=== PATIENT | male | born 1960 | race Caucasian/White ===

== ENCOUNTER 2017-03-06 11:33 | Inpatient (IN) | payer SELFPAY ==
[2017-03-06] MEDS ORDERED: SODIUM CHLORIDE 0.9% 1000 ML INFUS.BAG IV ONE (12:23)
[2017-03-06] MEDS ORDERED: VANCOMYCIN 1,000 MG in DEXTROSE 5%-WATER - 250 ML IVPB ONE (12:24)
[2017-03-06] MEDS ORDERED: PIPERACILLIN/TAZOB 3.375 GM/50 ML PRE-DOCKED IV ONE ×2 (12:24→15:15)
[2017-03-06] MEDS ORDERED: ACETAMINOPHEN INJECTION 100 ML IVPB ONE (12:38)
--- NOTE | 2017-03-06 12:40 | PDOC ---
History of Present Illness - General Chief Complaint: Wound Infection Stated Complaint: WOUND INFECTION Time Seen by Provider: 03/06/17 12:10 History Source: Patient Exam Limitations: No Limitations - History of Present Illness Initial Comments: 03/06/17 12:34 The patient is a 56M with a PMH of DM and MRSA infection in his nose who presents to the ED after sustaining a bug bite. The patient states that last week he think a bug bit him in his L upper, inner arm. The patient states that the area welted up and then began to drain clear fluid. He covered the area with gauze but states that he changes the gauze multiple times a day. Today, he thought it was so bad he had to come to the emergency department. Patient denies fever, chills, nausea, vomiting. Past History - Past Medical History Allergies/Adverse Reactions: Allergies Allergy/AdvReac Type Severity Reaction Status Date / Time No Known Allergies Allergy Verified 03/06/17 11:45 Home Medications: Ambulatory Orders Glipizide [Glipizide ER] 10 mg PO DAILY 03/06/17 Metformin HCl 500 mg PO BID 03/06/17 Diabetes: Yes - Suicide/Smoking/Psychosocial Hx Smoking History: Never smoked Have you smoked in the past 12 months: No Information on smoking cessation initiated: No Hx Alcohol Use: No Drug/Substance Use Hx: No Substance Use Type: None Review of Systems - Review of Systems Able to Perform ROS?: Yes Is the patient limited Moldovan proficient: No Constitutional: No: Chills, Fever HEENTM: No: Eye Pain, Nose Pain, Throat Pain Respiratory: No: Cough, Shortness of Breath Cardiac (ROS): No: Chest Pain, Palpitations ABD/GI: No: Nausea, Vomiting : No: Burning, Dysuria, Discharge Musculoskeletal: No: Back Pain, Muscle Weakness Integumentary: Yes: Erythema, Pruritus, Rash. No: Bruising, Lesions, Lumps Neurological: No: Headache, Numbness, Tingling, Weakness Endocrine: No: Excessive Sweating, Unexplained Weight Gain *Physical Exam - Vital Signs Last Vital Signs Temp Pulse Resp BP Pulse Ox 101.1 F H 130 H 18 116/75 100 03/06/17 11:40 03/06/17 11:40 03/06/17 11:40 03/06/17 11:40 03/06/17 11:40 - Physical Exam General Appearance: Yes: Nourished, Appropriately Dressed. No: Apparent Distress HEENT: positive: Normal Voice, Hearing Grossly Normal Respiratory/Chest: positive: Lungs Clear, Normal Breath Sounds. negative: Respiratory Distress Cardiovascular: positive: Regular Rhythm, Regular Rate, S1, S2. negative: Diastolic Murmur, Systolic Murmur Gastrointestinal/Abdominal: positive: Flat, Soft. negative: Tender Musculoskeletal: negative: CVA Tenderness, CVA Tenderness (R), CVA Tenderness (L ) Extremity: positive: Normal Inspection Integumentary: positive: Warm, Erythema (L axilla, with mild extension to mid- elbow), Rash, Swelling, Other (Abscess, fluctuance, induration in the middle of the area.) Neurologic: positive: Fully Oriented, Alert, Normal Mood/Affect, Normal Response , Motor Strength 5 ED Treatment Course - LABORATORY CBC & Chemistry Diagram: 03/06/17 12:40 03/06/17 12:40 Medical Decision Making - Medical Decision Making 03/06/17 12:42 The patient is a 56M with a PMH of DM and MRSA infection (2 years ago) who presents to the ED with cellulitis w/ an abscess. The patient's incoming vitals are significant for tachycardia (130) and fever (101.1) therefore I will initiate the sepsis protocol. I will perform a bedside ultrasound of the cellulitic area. I will also order vanc/zosyn for broad spectrum coverage. Will reassess when labs return. 03/06/17 13:58 WBC count 11 w/ neutrophilia. UA questionable for UTI. Will discuss results with attending and continue abx. 03/06/17 14:32 Bedside US shows no evidence of abscess, but shows cobblestoning of skin. 03/06/17 14:46 Paged hospitalist for admission. Pending call back from [employer]. 03/06/17 14:56 Patient signed out to [employer] hospitalist. *DC/Admit/Observation/Transfer Diagnosis at time of Disposition: Cellulitis Qualifiers: Site of cellulitis: extremity Site of cellulitis of extremity: axilla Laterality: left Qualified Code(s): L03.112 - Cellulitis of left axilla - Discharge Dispostion Condition at time of disposition: Stable Admit: Yes
[2017-03-06 12:57] LABS: VENOUS BLOOD GAS HCO3 25.6 meq/L (19-25); VENOUS PH 7.4 (7.32-7.42)
[2017-03-06] MEDS ORDERED: ACETAMINOPHEN 1000 MG/100 ML VIAL (NON FORMULARY) IVPB ONE (13:00)
[2017-03-06] MEDS ORDERED: PIPERACILLIN/TAZOB 3.375 GM 50 ML IVPB ONE (13:01)
[2017-03-06] MEDS ORDERED: VANCOMYCIN 1 GRAM (PRE-DOCKED) 250 ML IVPB ONE (13:01)
[2017-03-06 13:02] LABS: BASOPHIL 0.6 % (0-2.0); EOSINOPHIL 1.5 % (0-4.5); MCH 29.9 pg (25.7-33.7); MCHC 33.7 g/dl (32.0-35.9); MEAN CELL VOLUME 88.8 fl (80-96); MEAN PLT VOLUME 9.8 fl (7.5-11.1); NEUTROPHILS 84.6 % (42.8-82.8); PLATELET COUNT 196 K/MM3 (134-434); RDW 13.1 % (11.9-15.9)
[2017-03-06 13:07] LABS: URINE APPEARANCE SLCLOUDY; URINE BILIRUBIN NEGATIVE (NEGATIVE); URINE BLOOD 1+ (NEGATIVE); URINE COLOR YELLOW; URINE GLUCOSE (UA) 3+ (NEGATIVE); URINE KETONE NEGATIVE (NEGATIVE); URINE NITRITE NEGATIVE (NEGATIVE); URINE UROBILINOGEN NEGATIVE mg/dL (0.2-1.0)
[2017-03-06 13:08] LABS: URINE PROTEIN 1+ (NEGATIVE)
[2017-03-06 13:10] LABS: URINE BACTERIA FEW /hpf (NONE SEEN); URINE MUCUS RARE; URINE WBC 14 /hpf (3-5)
[2017-03-06 13:11] LABS: URINE RBC 1 /hpf (0-3)
[2017-03-06 13:25] LABS: INR 1.25 (0.82-1.09); PROTHROMBIN TIME (PATIENT) 14.1 SEC (9.98-11.88)
[2017-03-06 13:28] LABS: ACTIVATED PTT 26.2 SECONDS (26.9-34.4)
--- NOTE | 2017-03-06 13:32 | PDOC ---
Attending Attestation - Resident Resident Name: SawyerredKristofer - ED Attending Attestation I have performed the following: I have examined & evaluated the patient, The case was reviewed & discussed with the resident, I agree w/resident's findings & plan, Exceptions are as noted - HPI HPI: 03/06/17 13:28 56 year old M c/ hx of DM p/w Left upper extremity cellulitis. 1 week ago, was playing golf, and thought was bitten by bug. noted in the last several days, the erythema extended from left proximal armpit to left distal forearm. Noted drainage from under armpit. Reported fevers last several days. Took no antibiotics. Came into ED today. - Physicial Exam PE: 03/06/17 13:29 GENERAL: NAD, warm to touch, AAOx3 SKIN: LUE: 2+ radial pulse. Sensation intact throughout. Significant erythema and induration extending from the from the left armpit with mild oozing to the mid left forearm. - Medical Decision Making 03/06/17 13:32 Vital Signs Temp Pulse Resp BP Pulse Ox 101.1 F H 130 H 18 116/75 100 03/06/17 11:40 03/06/17 11:40 03/06/17 11:40 03/06/17 11:40 03/06/17 11:40 56 yo M presents with fever and extensively cellulitis. Bedside ultrasound shows no collection to drain. Adult sepsis protocol initiated. IV vanc and zosyn Admit to the hospital Heart Score/ECG Review #1 ECG reviewed & interpreted by me at: 14:10 03/06/17 15:54 NSR 104, no std/lamine, TWi III, QTC 423 msec
[2017-03-06 13:53] LABS: ALBUMIN 2.9 g/dl (3.4-5.0); ANION GAP 9 (8-16); BILIRUBIN,TOTAL 0.3 mg/dL (0.2-1.0); CALCIUM 8.8 mg/dL (8.5-10.1); CO2 26 mmol/L (21-32); CREATININE 1.1 mg/dL (0.7-1.3); GLUCOSE,RANDOM 255 mg/dL (74-106); SGOT/AST 18 U/L (15-37); SGPT/ALT 36 U/L (12-78); TOT PROT 6.6 g/dl (6.4-8.2)
[2017-03-06 13:55] LABS: ALK PHOS 104 U/L (45-117); CPK 199 IU/L (39-308); TROPONIN I < 0.02 ng/ml (0.00-0.05)
[2017-03-06 15:07] LABS: URINE LEUK ESTERASE Negative (NEGATIVE)
--- NOTE | 2017-03-06 15:39 | HP ---
CHIEF COMPLAINT: Chills, itching, swelling of left axilla PCP: Dr. Ardon HISTORY OF PRESENT ILLNESS: This is a 56 year old male with PMHx of DM who presented to the ED with left axillary swelling, erythema, drainage after a bug bite on 02/27. The patient reports he got a bug bite on 02/27 after playing golf. He states it was erythematous and he took Benadryl and put Benadryl cream on it for itching. He then states this past and Tuesday it became larger and he developed chills. He states he then noticed there was drainage from it and he decided to come into the ED. He denies any fevers stating he did not take his temperature at home. He denies ER course was notable for: (1) WBC 11 (2) Temp 101.1, pulse 30, BP 116/75, resp 18, O2 100% on RA (3) Vanco and Zosyn given Recent Travel: denies PAST MEDICAL HISTORY: DM PAST SURGICAL HISTORY: denies Social History: Smoking: denies Alcohol: "a few beers every other week" Drugs: denies Family History: denies Allergies No Known Allergies Allergy (Verified 03/06/17 11:45) HOME MEDICATIONS: Home Medications Medication Instructions Recorded Glipizide [Glipizide ER] 10 mg PO DAILY 03/06/17 Metformin HCl 500 mg PO BID 03/06/17 REVIEW OF SYSTEMS CONSTITUTIONAL: Chills since evening. Absent: fever, diaphoresis, generalized weakness, malaise, loss of appetite, weight change HEENT: Absent: rhinorrhea, nasal congestion, throat pain, throat swelling, difficulty swallowing, mouth swelling, ear pain, eye pain, visual changes CARDIOVASCULAR: Absent: chest pain, syncope, palpitations, irregular heart rate , lightheadedness, peripheral edema RESPIRATORY: Absent: cough, shortness of breath, dyspnea with exertion, orthopnea, wheezing, stridor, hemoptysis GASTROINTESTINAL:Absent: abdominal pain, abdominal distension, nausea, vomiting , diarrhea, constipation, melena, hematochezia GENITOURINARY: Absent: dysuria, frequency, urgency, hesitancy, hematuria, flank pain, genital pain MUSCULOSKELETAL: Absent: myalgia, arthralgia, joint swelling, back pain, neck pain SKIN: Left upper arm bug bite on Tuesday, with worsening erythema and swelling throughout the week and then drainage noted today. Absent: itching, pallor HEMATOLOGIC/IMMUNOLOGIC: Absent: easy bleeding, easy bruising, lymphadenopathy, frequent infections ENDOCRINE:Absent: unexplained weight gain, unexplained weight loss, heat intolerance, cold intolerance NEUROLOGIC: Absent: headache, focal weakness or paresthesias, dizziness, unsteady gait, seizure, mental status changes, bladder or bowel incontinence PSYCHIATRIC: Absent: anxiety, depression, suicidal or homicidal ideation, hallucinations. PHYSICAL EXAMINATION Vital Signs - 24 hr 03/06/17 15:25 Temperature 98.2 F Pulse Rate [ 109 H Apical] Respiratory 20 Rate Blood Pressure 155/99 [Right Arm] O2 Sat by Pulse 97 Oximetry (%) GENERAL: Awake, alert, and fully oriented, in no acute distress. HEAD: Normal with no signs of trauma. EYES: Pupils equal, round and reactive to light, extraocular movements intact, sclera anicteric, conjunctiva clear. No lid lag. EARS, NOSE, THROAT: Ears normal, nares patent, oropharynx clear without exudates. Moist mucous membranes. NECK: Normal range of motion, supple without lymphadenopathy, JVD, or masses. LUNGS: Breath sounds equal, clear to auscultation bilaterally. No wheezes, and no crackles. No accessory muscle use. HEART: Regular rate and rhythm, normal S1 and S2 without murmur, rub or gallop. ABDOMEN: Soft, nontender, not distended, normoactive bowel sounds, no guarding, no rebound, no masses. No hepatomegaly or splenomegaly. MUSCULOSKELETAL: Normal range of motion at all joints. No bony deformities or tenderness. No CVA tenderness. UPPER EXTREMITIES: Left upper extremity with erythema, induration, edema, drainage. 2+ pulses, warm, well-perfused. No cyanosis. No clubbing. LOWER EXTREMITIES: 2+ pulses, warm, well-perfused. No calf tenderness. No peripheral edema. NEUROLOGICAL: Cranial nerves II-XII intact. Normal speech. Normal gait. PSYCHIATRIC: Cooperative. Good eye contact. Appropriate mood and affect. SKIN: Warm, dry, normal turgor, normal capillary refill. CBCD WBC 11.0 K/mm3 (4.0-10.0) H 03/06/17 12:40 RBC 3.99 M/mm3 (4.00-5.60) L D 03/06/17 12:40 Hgb 12.0 GM/dL (11.7-16.9) D 03/06/17 12:40 Hct 35.4 % (35.4-49) D 03/06/17 12:40 MCV 88.8 fl (80-96) 03/06/17 12:40 MCHC 33.7 g/dl (32.0-35.9) 03/06/17 12:40 RDW 13.1 % (11.9-15.9) 03/06/17 12:40 Plt Count 196 K/MM3 (134-434) 03/06/17 12:40 MPV 9.8 fl (7.5-11.1) 03/06/17 12:40 CMP Sodium 137 mmol/L (136-145) 03/06/17 12:40 Potassium 4.5 mmol/L (3.5-5.1) 03/06/17 12:40 Chloride 102 mmol/L (98-107) 03/06/17 12:40 Carbon Dioxide 26 mmol/L (21-32) 03/06/17 12:40 Anion Gap 9 (8-16) 03/06/17 12:40 BUN 16 mg/dL (7-18) D 03/06/17 12:40 Creatinine 1.1 mg/dL (0.7-1.3) 03/06/17 12:40 Creat Clearance w eGFR > 60 (>60) 03/06/17 12:40 Random Glucose 255 mg/dL (74-106) H D 03/06/17 12:40 Calcium 8.8 mg/dL (8.5-10.1) 03/06/17 12:40 Total Bilirubin 0.3 mg/dL (0.2-1.0) 03/06/17 12:40 AST 18 U/L (15-37) D 03/06/17 12:40 ALT 36 U/L (12-78) D 03/06/17 12:40 Alkaline Phosphatase 104 U/L (45-117) D 03/06/17 12:40 Total Protein 6.6 g/dl (6.4-8.2) 03/06/17 12:40 Albumin 2.9 g/dl (3.4-5.0) L D 03/06/17 12:40 CARDIAC ENZYMES Creatine Kinase 199 IU/L (39-308) 03/06/17 12:40 Troponin I < 0.02 ng/ml (0.00-0.05) 03/06/17 12:40 Assessment: This is a 56 year old male with PMHx of DM who presented to the ED with left axillary swelling, erythema, drainage after a bug bite on 02/27. Plan: 1) ID: Sepsis 2/2 left upper extremity cellulitis - F/u cultures - Continue Vancomycin (Hx of MRSA) - Continue Zosyn - F/u soft tissue ultrasound to r/o abscess - F/u surgery consult - F/u ID consult, discussed with Dr. Pepe 2) Endocrine: NIDDM - BGM ACHS - ISS ACHS - Hold all oral hypoglycemic agents while inpatient 3) F/E/N: - Monitor electrolytes - Diabetic diet 4) Prophylaxis: - SCDs bilaterally - Hold all chemical DVT prophylaxis for possible I&D 5) Dispo: - Requires continued inpatient care CODE STATUS: FULL CODE Problem List - Problem (1) Cellulitis Code(s): L03.90 - CELLULITIS, UNSPECIFIED Qualifiers: Site of cellulitis: extremity Site of cellulitis of extremity: axilla Laterality: left Qualified Code(s): L03.112 - Cellulitis of left axilla ; L03.112 - Cellulitis of left axilla (2) Sepsis affecting skin Code(s): A41.9 - SEPSIS, UNSPECIFIED ORGANISM Visit type - Emergency Visit Emergency Visit: Yes ED Registration Date: 03/06/17 Care time: The patient presented to the Emergency Department on the above date and was hospitalized for further evaluation of their emergent condition. - New Patient This patient is new to me today: Yes Date on this admission: 03/06/17 - Critical Care Critical Care patient: No
[2017-03-06] MEDS: VANCOMYCIN 1,250 MG in DEXTROSE 5%-WATER - 250 ML IVPB SCH (16:47)
[2017-03-06] MEDS: INSULIN SLIDING SCALE (NOVOLOG) 1 VIAL SQ SCH ×2 (17:07→22:16)
--- NOTE | 2017-03-06 17:49 | PN ---
Progress Note (short form) - Note Progress Note: ID Consult dictated Cellulitis/ soft tissue abscess L UE Hx MRSA Diabetes mellitus Await c/s Surgical evaluation Empiric vancomycin/ zosyn
--- NOTE | 2017-03-06 18:06 | CONS ---
DATE OF CONSULTATION: 03/06/2017 The patient is a 56-year-old obese, diabetic male with a history of MRSA infection in the past evaluated for left upper extremity cellulitis and abscess. Patient states that, on or about February 27, 2017, while golfing, he believes he may have been bitten by a bug. He noticed over the past 72 hours worsening erythema, warmth, and swelling of the arm. He had taken some Benadryl for pruritus, but did not take any antibiotics. He began to notice drainage and had subjective fever. He presented to the emergency room, where he was found to have cellulitis of the left upper extremity with purulent wound drainage. He reports that several years ago he had an MRSA soft tissue infection of his nose. PAST MEDICAL HISTORY: Positive for diabetes mellitus and history of MRSA soft tissue infection. No known allergies. LABORATORY DATA: White count 11.0, hematocrit 35.4, platelet count 196. BUN 16, creatinine 1.1. Urinalysis with 14 white cells. PHYSICAL EXAMINATION: General: He is awake and alert. He is not acutely toxic-appearing. Morbidly obese. Vital Signs: Temperature 98.2, temperature maximum 101.1, blood pressure 155/99, pulse 109 and regular, respirations 20/min. HEENT: Sclerae anicteric. Heart Sounds: S1, S2. Lungs: Clear. Abdomen: Obese, soft, nontender. Extremities: Negative for edema. Skin: On examination of the left upper extremity, there is a large area of erythema, warmth, and swelling extending from the left triceps area to the biceps area. There is an area where benito pus is noted to be draining. It is tender to touch. No fluctuance, no lymphangitis. IMPRESSION: 1. Cellulitis/soft tissue abscess of the left upper extremity. 2. 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 3. Diabetes mellitus. Await culture results, surgical evaluation for possible incision and drainage, empiric antibiotic coverage with vancomycin and Zosyn, local wound care. Thank you for the kind referral. MILTON LOPEZ M.D. [id number]
[2017-03-06] MEDS: PIPERACILLIN/TAZOB 4.5 GM 100 ML IVPB SCH (19:05)
[2017-03-06] MEDS: ACETAMINOPHEN 1000 MG/100 ML VIAL (NON FORMULARY) IVPB PRN (22:06)
[2017-03-07] MEDS ORDERED: PIPERACILLIN/TAZOB 4.5 GM 100 ML IVPB ONE (02:35)
[2017-03-07] MEDS: PIPERACILLIN/TAZOB 4.5 GM 100 ML IVPB SCH ×3 (04:00→20:18)
[2017-03-07] MEDS: VANCOMYCIN 1,250 MG in DEXTROSE 5%-WATER - 250 ML IVPB SCH ×2 (05:00→21:23)
[2017-03-07 07:43] LABS: BASOPHIL 0.4 % (0-2.0); EOSINOPHIL 3.4 % (0-4.5); MCH 30.1 pg (25.7-33.7); MEAN CELL VOLUME 88.5 fl (80-96); MEAN PLT VOLUME 9.7 fl (7.5-11.1); NEUTROPHILS 77.1 % (42.8-82.8); PLATELET COUNT 214 K/MM3 (134-434); RDW 13.4 % (11.9-15.9); WHITE BLOOD COUNT 10.1 K/mm3 (4.0-10.0)
[2017-03-07] MEDS ORDERED: ACETAMINOPHEN INJECTION 100 ML IVPB ONE (08:00)
[2017-03-07] MEDS: ACETAMINOPHEN 1000 MG/100 ML VIAL (NON FORMULARY) IVPB PRN (08:04)
[2017-03-07 08:13] LABS: ALBUMIN 2.7 g/dl (3.4-5.0); ANION GAP 10 (8-16); CALCIUM 8.6 mg/dL (8.5-10.1); CO2 26 mmol/L (21-32); CREATININE 1.2 mg/dL (0.7-1.3); GLUCOSE,RANDOM 250 mg/dL (74-106); MAGNESIUM 2.2 mg/dL (1.8-2.4); PHOSPHOROUS 2.8 mg/dL (2.5-4.9); SGOT/AST 21 U/L (15-37); SGPT/ALT 42 U/L (12-78)
[2017-03-07 08:15] LABS: ALK PHOS 103 U/L (45-117); BILIRUBIN,TOTAL 0.5 mg/dL (0.2-1.0); TOT PROT 6.4 g/dl (6.4-8.2)
--- NOTE | 2017-03-07 08:37 | PN ---
Physical Exam: SUBJECTIVE: Patient seen and examined OBJECTIVE: Vital Signs Period Temp Pulse Resp BP Sys/Calles Pulse Ox Last 24 Hr 98.2 F-102.8 F 92-109 18-20 127-155/82-99 97-100 GENERAL: The patient is awake, alert, and fully oriented, in no acute distress. HEAD: Normal with no signs of trauma. EYES: PERRL, extraocular movements intact, sclera anicteric, conjunctiva clear. No ptosis. ENT: Ears normal, nares patent, oropharynx clear without exudates, moist mucous membranes. NECK: Trachea midline, full range of motion, supple. LUNGS: Breath sounds equal, clear to auscultation bilaterally, no wheezes, no crackles, no accessory muscle use. HEART: Regular rate and rhythm, S1, S2 without murmur, rub or gallop. ABDOMEN: Soft, nontender, nondistended, normoactive bowel sounds, no guarding, no rebound, no hepatosplenomegaly, no masses. EXTREMITIES: 2+ pulses, warm, well-perfused, no edema. NEUROLOGICAL: Cranial nerves II through XII grossly intact. Normal speech, gait not observed. PSYCH: Normal mood, normal affect. SKIN: Warm, dry, normal turgor, no rashes or lesions noted Laboratory Results - last 24 hr 03/06/17 03/06/17 03/07/17 16:55 22:13 06:00 WBC 10.1 H RBC 4.06 Hgb 12.2 Hct 35.9 MCV 88.5 MCH 30.1 MCHC 34.0 RDW 13.4 Plt Count 214 MPV 9.7 Neutrophils % 77.1 Lymphocytes % 11.4 D Monocytes % 7.7 Eosinophils % 3.4 D Basophils % 0.4 Sodium Potassium Chloride Carbon Dioxide Anion Gap BUN Creatinine Creat Clearance w eGFR POC Glucometer [phone] Random Glucose Calcium Phosphorus Magnesium Total Bilirubin AST ALT Alkaline Phosphatase Total Protein Albumin 03/07/17 06:00 WBC RBC Hgb Hct MCV MCH MCHC RDW Plt Count MPV Neutrophils % Lymphocytes % Monocytes % Eosinophils % Basophils % Sodium 137 Potassium 4.3 Chloride 101 Carbon Dioxide 26 Anion Gap 10 BUN 12 D Creatinine 1.2 Creat Clearance w eGFR > 60 POC Glucometer Random Glucose 250 H Calcium 8.6 Phosphorus 2.8 Magnesium 2.2 Total Bilirubin 0.5 D AST 21 ALT 42 Alkaline Phosphatase 103 Total Protein 6.4 Albumin 2.7 L Active Medications Generic Name Dose Route Start Last Admin Trade Name Freq PRN Reason Stop Dose Admin Acetaminophen 1,000 mg 03/06/17 21:52 03/07/17 08:04 Ofirmev Injection - IVPB 03/07/17 15:53 1,000 mg Q6H PRN Administration FEVER OR PAIN Piperacillin/Tazobactam/Dextrose 100 mls @ 200 mls/hr 03/06/17 18:00 03/07/17 04:00 Zosyn 4.5gm Ivpb (Premix) IVPB 200 mls/hr Q8H-IV KARYNA Administration Protocol Vancomycin HCl 1,250 mg/ 250 mls @ 166.667 mls/hr 03/06/17 15:30 03/07/17 05:00 Dextrose IVPB 166.667 mls/hr Q12H KARYNA Administration Insulin Aspart 1 vial 03/06/17 16:30 03/06/17 22:16 Novolog Vial Sliding Scale - SQ 4 units ACHS KARYNA Administration Protocol ASSESSMENT/PLAN: # Cellulitis of LUE - Continue empiric Vanc/Zosyn - Drainage in OR, await wound culture - Blood culture pending
--- NOTE | 2017-03-07 09:15 | PN ---
Teaching Attending Note Name of Resident: Obed Fletcher ATTENDING PHYSICIAN STATEMENT I saw and evaluated the patient. I reviewed the resident's note and discussed the case with the resident. I agree with the resident's findings and plan as documented. SUBJECTIVE:Seen with Dr Valdovinos and Dr Fletcher Getting Vanco and Zosyn Fever 102.8 overnight but NAD OBJECTIVE:Large fluctuant necrotic abscess left upper extr near axilla ASSESSMENT AND PLAN: For OR I & D Contiue Antibiotics CRP Plan As above Lissa FIORE Problem List - Problems (1) Cellulitis Code(s): L03.90 - CELLULITIS, UNSPECIFIED Qualifiers: Site of cellulitis: extremity Site of cellulitis of extremity: axilla Laterality: left Qualified Code(s): L03.112 - Cellulitis of left axilla ; L03.112 - Cellulitis of left axilla (2) Diabetes 1.5, managed as type 2 Code(s): E10.9 - TYPE 1 DIABETES MELLITUS WITHOUT COMPLICATIONS (3) Abscess Code(s): L02.91 - CUTANEOUS ABSCESS, UNSPECIFIED
[2017-03-07] MEDS ORDERED: PROPOFOL 20 ML ONE ×4 (09:48→10:08)
[2017-03-07] MEDS ORDERED: MIDAZOLAM HCL 2 MG/2 ML SINGLE DOSE VIAL ONE (09:48)
[2017-03-07] MEDS ORDERED: LIDOCAINE 1%/EPI 1:100000 (20 ML MULTI DOSE VIAL) ONE (10:04)
[2017-03-07] MEDS ORDERED: PIPERACILLIN/TAZOBACTAM 4.5 GM VIAL IVPB ONE (10:08)
[2017-03-07] MEDS ORDERED: LIDOCAINE 1%/EPI 1:100000 (50 ML MULTI DOSE VIAL) INF ONE (10:10)
[2017-03-07] MEDS ORDERED: BACITRACIN 50,000 UNITS VIAL TP ONE (10:18)
[2017-03-07] MEDS ORDERED: SODIUM CHLORIDE 0.9% P/F 10 ML VIAL IJ ONE (10:32)
[2017-03-07] MEDS ORDERED: ONDANSETRON 4 MG/2 ML VIAL IVPUSH PRN ×2 (10:55→12:10)
--- NOTE | 2017-03-07 11:29 | CONSULT ---
Consult Consult Specialty:: Surgery Reason for Consultation:: Left upper extremity abscess - History of Present Illness History of Present Illness: 56 male with diabetes presents with pain, redness, and swelling of his left upper extremity States he was playing golf after which when he noticed his warm started to swell Fevers in ER - History Source History Provided By: Patient, Medical Record Limitations to Obtaining History: No Limitations - Past Medical History Endocrine: Yes: Diabetes Mellitus - Alcohol/Substance Use Hx Alcohol Use: No - Smoking History Smoking history: Never smoked Have you smoked in the past 12 months: No Home Medications - Allergies Allergies/Adverse Reactions: Allergies Allergy/AdvReac Type Severity Reaction Status Date / Time No Known Allergies Allergy Verified 03/06/17 11:45 - Home Medications Home Medications: Ambulatory Orders Glipizide [Glipizide ER] 10 mg PO DAILY 03/06/17 Metformin HCl 500 mg PO BID 03/06/17 Family Disease History - Family Disease History Family History: Unremarkable Review of Systems - Review of Systems Constitutional: reports: Malaise HENT: reports: No Symptoms Cardiovascular: denies: Chest Pain Respiratory: denies: Cough Gastrointestinal: denies: Abdominal Pain Integumentary: reports: Erythema Neurological: denies: Change in LOC Pain Intensity: 3 Physical Exam Vital Signs: Vital Signs Temperature 98.4 F 03/07/17 09:03 Pulse Rate 95 H 03/07/17 09:03 Respiratory Rate 20 03/07/17 09:03 Blood Pressure 124/88 03/07/17 09:03 O2 Sat by Pulse Oximetry (%) 100 03/07/17 09:03 Constitutional: Yes: Calm HENT: Yes: WNL Neck: Yes: WNL Cardiovascular: Yes: Regular Rate and Rhythm Respiratory: Yes: CTA Bilaterally Gastrointestinal: Yes: Soft. No: Tenderness, Tenderness, Rebound Extremities: Yes: Other (+ Large left collection with erythema, some purulent discharge and tenderness over medial aspect above the elbow) Neurological: Yes: Alert, Oriented Labs: CBC, BMP 03/07/17 06:00 03/07/17 06:00 Imaging - Results Ultrasound: Report Reviewed, Image Reviewed Problem List - Problems (1) Abscess Code(s): L02.91 - CUTANEOUS ABSCESS, UNSPECIFIED (2) Cellulitis Code(s): L03.90 - CELLULITIS, UNSPECIFIED Qualifiers: Site of cellulitis: extremity Site of cellulitis of extremity: axilla Laterality: left Qualified Code(s): L03.112 - Cellulitis of left axilla ; L03.112 - Cellulitis of left axilla (3) Sepsis affecting skin Code(s): A41.9 - SEPSIS, UNSPECIFIED ORGANISM Assessment/Plan 56 male with large left upper extremity abscess Needs incision and drainage Antibiotics
[2017-03-07] MEDS ORDERED: HYDROmorphone HCL CARPU-JECT 1 MG/1 ML DISP.SYRIN IVPB PRN (11:30)
--- NOTE | 2017-03-07 11:34 | OP ---
Operative Note - Note: Operative Date: 03/07/17 Pre-Operative Diagnosis: Left upper extremity abscess Operation: Incision and drainage of left upper extremity abscess, excisional debridement of necrotic skin and subcutaneous tissue Findings: Large 8cm x 8cm abscess cavity Copious pus Post-Operative Diagnosis: Same as Pre-op Surgeon: Mike Valdovinos Anesthesia: General Specimens Removed: Culture. Necrotic skin/subcutaneous tissue Estimated Blood Loss (mls): 10 Operative Report Dictated: Yes
[2017-03-07] MEDS ORDERED: ACETAMINOPHEN 1000 MG/100 ML VIAL (NON FORMULARY) IVPB PRN (12:10)
[2017-03-07] MEDS ORDERED: HYDROmorphone HCL CARPU-JECT 2 MG/1 ML DISP.SYRIN IVPB PRN (12:10)
--- NOTE | 2017-03-07 15:18 | PN ---
Physical Exam: SUBJECTIVE: Patient seen and examined after I & D. He feels well, no acute complaints, no fever, chills, acute pain. Events: - Febrile his AM OBJECTIVE: Vital Signs Period Temp Pulse Resp BP Sys/Calles Pulse Ox Last 24 Hr 98.2 F-102.8 F 92-109 16-20 122-155/72-99 97-100 PE Neuro: alert, awake, cn 2-12 intact Pulm: CTAB CV: s1 s2 rrr no mrg Abd: obese abd, s nt nd + bs Ext: LUE incision with serrous drainage in dressing, no le edema, le warm Laboratory Results - last 24 hr 03/06/17 03/06/17 03/07/17 16:55 22:13 06:00 WBC 10.1 H RBC 4.06 Hgb 12.2 Hct 35.9 MCV 88.5 MCH 30.1 MCHC 34.0 RDW 13.4 Plt Count 214 MPV 9.7 Neutrophils % 77.1 Lymphocytes % 11.4 D Monocytes % 7.7 Eosinophils % 3.4 D Basophils % 0.4 Sodium Potassium Chloride Carbon Dioxide Anion Gap BUN Creatinine Creat Clearance w eGFR POC Glucometer [phone] Random Glucose Calcium Phosphorus Magnesium Total Bilirubin AST ALT Alkaline Phosphatase Total Protein Albumin 03/07/17 06:00 WBC RBC Hgb Hct MCV MCH MCHC RDW Plt Count MPV Neutrophils % Lymphocytes % Monocytes % Eosinophils % Basophils % Sodium 137 Potassium 4.3 Chloride 101 Carbon Dioxide 26 Anion Gap 10 BUN 12 D Creatinine 1.2 Creat Clearance w eGFR > 60 POC Glucometer Random Glucose 250 H Calcium 8.6 Phosphorus 2.8 Magnesium 2.2 Total Bilirubin 0.5 D AST 21 ALT 42 Alkaline Phosphatase 103 Total Protein 6.4 Albumin 2.7 L Active Medications Generic Name Dose Route Start Last Admin Trade Name Freq PRN Reason Stop Dose Admin Acetaminophen 1,000 mg 03/07/17 12:10 Ofirmev Injection - IVPB 03/07/17 15:53 Q6H PRN FEVER OR PAIN Hydromorphone HCl 1 mg 03/07/17 12:10 Dilaudid Injection - IVPB Q4H PRN PAIN Vancomycin HCl 1,250 mg/ 250 mls @ 166.667 mls/hr 03/07/17 16:00 Dextrose IVPB BID@0400,1600 KARYNA Piperacillin/Tazobactam/Dextrose 100 mls @ 200 mls/hr 03/07/17 18:00 Zosyn 4.5gm Ivpb (Premix) IVPB Q8H-IV KARYNA Protocol Insulin Aspart 1 vial 03/07/17 16:30 Novolog Vial Sliding Scale - SQ ACHS [facility] Protocol Ondansetron HCl 4 mg 03/07/17 12:10 Zofran Injection IVPUSH 03/07/17 16:56 Q6H PRN NAUSEA AND/OR VOMITING Microbiology 03/06/17 12:45 Blood - Peripheral Venous Blood Culture - Preliminary NO GROWTH OBTAINED AFTER 24 HOURS, INCUBATION TO CONTINUE FOR 4 DAYS. 03/06/17 12:40 Blood - Peripheral Venous Blood Culture - Preliminary NO GROWTH OBTAINED AFTER 24 HOURS, INCUBATION TO CONTINUE FOR 4 DAYS. 03/06/17 12:40 Urine - Urine Clean Catch Urine Culture - Preliminary Lactose Fermenting Neg Bacilli Assessment: 56 year old male with PMHx of DM admitted with left axillary swelling, erythema, drainage after a bug bite on 02/27. Plan: 1. Sepsis 2/2 left upper extremity cellulitis - I & D in OR today - Follow wound cultures - BC NGTD - Continue vanco BID / zosyn - NS @50cc x1L x24hr - D/w surgery 2. UTI - Abx as above - Final cx pending 3. DM II - ISS, BGM ACHS - Hold all oral hypoglycemic agents while inpatient 4. Prophylaxis - SCDs bilaterally - Resume heparin sq tomorrow Visit type - Emergency Visit Emergency Visit: Yes ED Registration Date: 03/06/17 Care time: The patient presented to the Emergency Department on the above date and was hospitalized for further evaluation of their emergent condition. - New Patient This patient is new to me today: Yes Date on this admission: 03/07/17 - Critical Care Critical Care patient: No
[2017-03-07] MEDS ORDERED: SODIUM CHLORIDE 1,000 ML IV SCH (16:00)
[2017-03-07] MEDS: INSULIN SLIDING SCALE (NOVOLOG) 1 VIAL SQ SCH ×2 (16:55→21:31)
[2017-03-07 17:53] VITALS: BMI 40.1
[2017-03-08] MEDS: PIPERACILLIN/TAZOB 4.5 GM 100 ML IVPB SCH ×2 (02:09→09:14)
[2017-03-08] MEDS: HEPARIN NA (PORCINE) 5,000 UNITS/ML 1ML VIAL SQ SCH ×3 (06:58→22:02)
[2017-03-08] MEDS: VANCOMYCIN 1,250 MG in DEXTROSE 5%-WATER - 250 ML IVPB SCH ×2 (06:58→17:00)
[2017-03-08] MEDS: INSULIN SLIDING SCALE (NOVOLOG) 1 VIAL SQ SCH ×4 (06:59→22:05)
--- NOTE | 2017-03-08 07:16 | EKG ---
Test Reason : Blood Pressure : / mmHG Vent. Rate : 104 BPM Atrial Rate : 104 BPM P-R Int : 140 ms QRS Dur : 082 ms QT Int : 322 ms P-R-T Axes : 027 -05 -06 degrees QTc Int : 423 ms SINUS TACHYCARDIA OTHERWISE NORMAL ECG NO PREVIOUS ECGS AVAILABLE Confirmed by HARRIS SINHA MD ([id number]) on 03/08/2017 7:15:45 AM Referred By: Confirmed By:HARRIS SINHA MD
[2017-03-08 07:28] LABS: BASOPHIL 0.9 % (0-2.0); EOSINOPHIL 6.8 % (0-4.5); MCH 30.4 pg (25.7-33.7); MEAN CELL VOLUME 89.2 fl (80-96); MEAN PLT VOLUME 9.7 fl (7.5-11.1); PLATELET COUNT 218 K/MM3 (134-434); WHITE BLOOD COUNT 7.3 K/mm3 (4.0-10.0)
[2017-03-08 07:41] LABS: ANION GAP 8 (8-16); CALCIUM 8.4 mg/dL (8.5-10.1); CO2 29 mmol/L (21-32); CREATININE 1.2 mg/dL (0.7-1.3); GLUCOSE,RANDOM 235 mg/dL (74-106)
[2017-03-08] MEDS ORDERED: PT OWN MED DRAWER 7, Y5N ONE ×2 (07:52→09:11)
--- NOTE | 2017-03-08 11:21 | PN ---
Progress Note (short form) - Note Progress Note: POD 1 Pain controlled Vital Signs Period Temp Pulse Resp BP Sys/Calles Pulse Ox Last 24 Hr 98.2 F-98.8 F 90-109 16-18 122-141/72-87 97-100 Wound dressed- RN to change dressing daily CBC, BMP 03/08/17 06:30 03/08/17 06:30 Follow cultures Antibiotics per ID Dressing changes daily May require VNS Problem List - Problems (1) Abscess Code(s): L02.91 - CUTANEOUS ABSCESS, UNSPECIFIED (2) Cellulitis Code(s): L03.90 - CELLULITIS, UNSPECIFIED Qualifiers: Qualified Code(s): L03.112 - Cellulitis of left axilla; L03.112 - Cellulitis of left axilla (3) Sepsis affecting skin Code(s): A41.9 - SEPSIS, UNSPECIFIED ORGANISM
[2017-03-08] MEDS ORDERED: INSULIN (NOVOLOG) ASPART 100 UNITS/ML 10ML VIAL ONE ×2 (11:22→21:29)
--- NOTE | 2017-03-08 11:24 | PN ---
Physical Exam: SUBJECTIVE: Patient seen and examined. He feels well, denies fever chills. OBJECTIVE: Vital Signs Period Temp Pulse Resp BP Sys/Calles Pulse Ox Last 24 Hr 98.2 F-98.8 F 90-109 16-18 122-141/72-87 97-100 PE Neuro: alert, awake, cn 2-12 intact Pulm: CTAB CV: s1 s2 rrr no mrg Abd: s nt nd + bs Ext: LUE incision clean, no drainage, surround erythema and indurated diffuse to posterior axilla and shoulder wound [id number] Laboratory Results - last 24 hr 03/07/17 03/07/17 03/08/17 16:35 21:21 06:30 WBC RBC Hgb Hct MCV MCH MCHC RDW Plt Count MPV Neutrophils % Lymphocytes % Monocytes % Eosinophils % Basophils % ESR Sodium 140 Potassium 4.5 Chloride 103 Carbon Dioxide 29 Anion Gap 8 BUN 15 D Creatinine 1.2 POC Glucometer 280 296 Random Glucose 235 H Calcium 8.4 L C-Reactive Protein 15.0 H 03/08/17 03/08/17 03/08/17 06:30 06:30 06:57 WBC 7.3 RBC 3.63 L Hgb 11.0 L Hct 32.4 L MCV 89.2 MCH 30.4 MCHC 34.0 RDW 13.0 Plt Count 218 MPV 9.7 Neutrophils % 72.0 Lymphocytes % 13.8 D Monocytes % 6.5 Eosinophils % 6.8 H D Basophils % 0.9 ESR 72 H Sodium Potassium Chloride Carbon Dioxide Anion Gap BUN Creatinine POC Glucometer 237 Random Glucose Calcium C-Reactive Protein Active Medications Generic Name Dose Route Start Last Admin Trade Name Freq PRN Reason Stop Dose Admin Heparin Sodium (Porcine) 5,000 unit 03/08/17 06:00 03/08/17 06:58 Heparin - SQ 5,000 unit TID KARYNA Administration Hydromorphone HCl 1 mg 03/07/17 12:10 Dilaudid Injection - IVPB Q4H PRN PAIN Vancomycin HCl 1,250 mg/ 250 mls @ 166.667 mls/hr 03/07/17 16:00 03/08/17 06:58 Dextrose IVPB 166.667 mls/hr BID@0400,1600 KARYNA Administration Piperacillin/Tazobactam/Dextrose 100 mls @ 200 mls/hr 03/07/17 18:00 03/08/17 09:14 Zosyn 4.5gm Ivpb (Premix) IVPB 200 mls/hr Q8H-IV KARYNA Administration Protocol Sodium Chloride 1,000 mls @ 50 mls/hr 03/07/17 16:00 03/07/17 16:53 Normal Saline - IV 03/08/17 15:47 50 mls/hr ASDIR KARYNA Administration Insulin Aspart 1 vial 03/07/17 16:30 03/08/17 06:59 Novolog Vial Sliding Scale - SQ 4 units ACHS KARYNA Administration Protocol Microbiology 03/06/17 12:45 Blood Culture - Preliminary Blood - Peripheral Venous NO GROWTH OBTAINED AFTER 48 HOURS, INCUBATION TO CONTINUE FOR 3 DAYS. 03/06/17 12:40 Blood Culture - Preliminary Blood - Peripheral Venous NO GROWTH OBTAINED AFTER 48 HOURS, INCUBATION TO CONTINUE FOR 3 DAYS. 03/07/17 11:30 Gram Stain - Final Abscess Wound Culture - Preliminary Presumptive Mrsa (Pbp2a Pos) 03/07/17 11:30 Gram Stain - Final Abscess Wound Culture - Preliminary Presumptive Mrsa (Pbp2a Pos) 03/07/17 11:30 Gram Stain - Final Tissue-Other Tissue Culture - Preliminary Presumptive Mrsa (Pbp2a Pos) 03/06/17 12:40 Urine Culture - Final Urine - Urine Clean Catch Klebsiella Pneumoniae Assessment: 56 year old male with PMHx of DM admitted with left axillary swelling, erythema, drainage after a bug bite on 02/27/17. Plan: 1. Sepsis 2/2 left upper extremity cellulitis - s/p I&D in OR 03/07 - Wound cultures pending, presumptive MRSA - Continue Vanco BID - Continue Zosyn q8 - Daily dressing changes with 4x4s, betadine soak, abd paid, wrapped in kerlex 2. Klebsiella UTI - Abx per ID 3. DM II - ISS, BGM ACHS - Hold all oral hypoglycemic agents while inpatient 4. Prophylaxis - SCDs bilaterally - Heparin sq Visit type - Emergency Visit Emergency Visit: Yes ED Registration Date: 03/06/17 Care time: The patient presented to the Emergency Department on the above date and was hospitalized for further evaluation of their emergent condition. - New Patient This patient is new to me today: No - Critical Care Critical Care patient: No
--- NOTE | 2017-03-08 12:13 | PN ---
Progress Note (short form) - Note Progress Note: Anesthesia postop note 56 y/o M s/p GA for I&d left axilla POD#1, aaox3, vss, no complaints. No anesthesia complications.
--- NOTE | 2017-03-08 12:49 | OP ---
DATE OF OPERATION: 03/07/2017 SURGEON: Jose Daniel Valdovinos MD PREOPERATIVE DIAGNOSIS: Left upper extremity abscess. POSTOPERATIVE DIAGNOSIS: Left upper extremity abscess approximately 8 cm x 8 cm in size with necrotic skin and subcutaneous tissue. PROCEDURE: Incision and drainage of left upper extremity abscess and incisional debridement of necrotic skin and subcutaneous tissue and pulse lavage. SPECIMEN: Culture, necrotic skin, and subcutaneous tissue. ESTIMATED BLOOD LOSS: 10 mL. ANESTHESIA: General. REASON FOR PROCEDURE: This 56-year-old gentleman presents to the hospital with a left upper extremity erythema, tenderness, and some drainage from his medial aspect of his left upper extremity above his elbow below his shoulder. He said he was playing golf recently. After playing, he noted swelling in the area, which has increased in size. On exam, he was noted to have a large and fluctuant area likely consistent with an abscess cavity. The overlying skin was noted to be blistering as well. Because of this, he was consented for incision and drainage of left upper extremity abscess. Risks and benefits of the procedure were explained. These included bleeding, infection, prolonged wound healing possibly requiring VAC placement of graft, injury to surrounding structures including muscle, vessel injury, nerve injury, persistent infection. IA, DVT, PE are some of the possible complications. He understood and signed for consent. DESCRIPTION OF PROCEDURE: The patient was placed supine on the operating room table. He underwent general anesthesia. The area was prepped and draped with Betadine in the usual sterile fashion. A time-out was performed. Lidocaine with epinephrine was injected in the area of the fluctuant mass. An incision was made, and immediately copious amounts of foul-smelling pus was noted. Cultures were taken and sent off the field. The area was opened bluntly. Loculations were broken with finger dissection. In addition, there was noted to be necrotic skin and subcutaneous tissue. This was excised using electrocautery. Hemostasis was achieved. Pulse irrigation with bacitracin was used to clean the area. Hemostasis was achieved with electrocautery. The area was packed with Kerlix dressing soaked in Betadine, and a dressing was applied. The patient tolerated the procedure well and was transferred to the recovery room in stable condition. JOSE DANIEL VALDOVINOS M.D. AUNG/[id number]
--- NOTE | 2017-03-08 13:30 | PN ---
Physical Exam: SUBJECTIVE: Patient seen and examined. Doing well this AM. Denies fevers, chills , CP, SOB. No pain around incision. OBJECTIVE: Vital Signs Period Temp Pulse Resp BP Sys/Calles Pulse Ox Last 24 Hr 98.2 F-98.8 F 84-109 16-20 122-141/75-87 97-100 GEN: AAOx3, NAD, Sitting in bed comfortably HEENT: PERRLA, EOMi CV: S1, S2, RRR LUNG: CTABL ABD: Soft, NT, ND MSK: Large appx 5cm area of packed abscess site, post-op, surrounding erythema Active Medications Generic Name Dose Route Start Last Admin Trade Name Freq PRN Reason Stop Dose Admin Heparin Sodium (Porcine) 5,000 unit 03/08/17 06:00 03/08/17 06:58 Heparin - SQ 5,000 unit TID KARYNA Administration Hydromorphone HCl 1 mg 03/07/17 12:10 Dilaudid Injection - IVPB Q4H PRN PAIN Vancomycin HCl 1,250 mg/ 250 mls @ 166.667 mls/hr 03/07/17 16:00 03/08/17 06:58 Dextrose IVPB 166.667 mls/hr BID@0400,1600 KARYNA Administration Sodium Chloride 1,000 mls @ 50 mls/hr 03/07/17 16:00 03/07/17 16:53 Normal Saline - IV 03/08/17 15:47 50 mls/hr ASDIR KARYNA Administration Insulin Aspart 1 vial 03/07/17 16:30 03/08/17 11:23 Novolog Vial Sliding Scale - SQ 10 units ACHS KARYNA Administration Protocol CBC, BMP 03/08/17 06:30 03/08/17 06:30 Microbiology 03/07/17 11:30 Tissue-Other Gram Stain - Final 03/07/17 11:30 Abscess Gram Stain - Final 03/07/17 11:30 Abscess Gram Stain - Final 03/06/17 12:40 Urine - Urine Clean Catch Urine Culture - Final Klebsiella Pneumoniae 03/07/17 11:30 Tissue-Other Tissue Culture - Preliminary Presumptive Mrsa (Pbp2a Pos) 03/07/17 11:30 Abscess Wound Culture - Preliminary Presumptive Mrsa (Pbp2a Pos) 03/07/17 11:30 Abscess Wound Culture - Preliminary Presumptive Mrsa (Pbp2a Pos) 03/06/17 12:45 Blood - Peripheral Venous Blood Culture - Preliminary NO GROWTH OBTAINED AFTER 48 HOURS, INCUBATION TO CONTINUE FOR 3 DAYS. 03/06/17 12:40 Blood - Peripheral Venous Blood Culture - Preliminary NO GROWTH OBTAINED AFTER 48 HOURS, INCUBATION TO CONTINUE FOR 3 DAYS. ASSESSMENT/PLAN: 56 year old male with PMHx of DM admitted with left axillary swelling, erythema , drainage after possible bug bite on 02/27. # Abscess of LUE - POD1 from OR drainage - Wound cultures came back presumptive MRSA - Blood culture negative to date - Continue Vancomycin for MRSA - Klebsiella in urine, but no dysuria, ?treatment, hold for now Discussed w/ Dr Pepe. Will follow Obed Fletcher MD - PGY1 Infectious Disease Visit type - Emergency Visit Emergency Visit: No - New Patient This patient is new to me today: No - Critical Care Critical Care patient: No
[2017-03-08] MEDS ORDERED: INSULIN DETEMIR 100 UNITS/ML MDV SQ SCH (22:00)
[2017-03-09] MEDS: VANCOMYCIN 1,250 MG in DEXTROSE 5%-WATER - 250 ML IVPB SCH (05:13)
[2017-03-09] MEDS: HEPARIN NA (PORCINE) 5,000 UNITS/ML 1ML VIAL SQ SCH ×2 (05:13→15:51)
[2017-03-09] MEDS: INSULIN SLIDING SCALE (NOVOLOG) 1 VIAL SQ SCH ×3 (06:35→12:13)
[2017-03-09 07:43] LABS: BASOPHIL 0.6 % (0-2.0); EOSINOPHIL 5.7 % (0-4.5); MCH 30.4 pg (25.7-33.7); MCHC 34.3 g/dl (32.0-35.9); MEAN CELL VOLUME 88.6 fl (80-96); MEAN PLT VOLUME 9.7 fl (7.5-11.1); NEUTROPHILS 68.8 % (42.8-82.8); PLATELET COUNT 241 K/MM3 (134-434); RDW 13.1 % (11.9-15.9); WHITE BLOOD COUNT 7.7 K/mm3 (4.0-10.0)
[2017-03-09 08:18] LABS: ANION GAP 8 (8-16); CALCIUM 8.2 mg/dL (8.5-10.1); CO2 26 mmol/L (21-32); CREATININE 1.1 mg/dL (0.7-1.3); GLUCOSE,RANDOM 256 mg/dL (74-106)
--- NOTE | 2017-03-09 11:04 | PN ---
Physical Exam: INFECTIOUS DISEASE SUBJECTIVE: Patient seen and examined. Afebrile overnight. Denies fevers, chills , CP, SOB. Denies any urinary complaints OBJECTIVE: Vital Signs Period Temp Pulse Resp BP Sys/Calles Pulse Ox Last 24 Hr 98.5 F-98.9 F 86-108 16-22 119-145/70-84 96 GEN: AAOx3, NAD, Sitting in bed comfortably HEENT: PERRLA, EOMi CV: S1, S2, RRR LUNG: CTABL ABD: Soft, NT, ND MSK: Still remains large appx 5cm area of packed abscess site, post-op, surrounding erythema, warm, minimal discomfort Active Medications Generic Name Dose Route Start Last Admin Trade Name Freq PRN Reason Stop Dose Admin Heparin Sodium (Porcine) 5,000 unit 03/08/17 06:00 03/09/17 05:13 Heparin - SQ 5,000 unit TID KARYNA Administration Hydromorphone HCl 1 mg 03/07/17 12:10 Dilaudid Injection - IVPB Q4H PRN PAIN Vancomycin HCl 1,250 mg/ 250 mls @ 166.667 mls/hr 03/07/17 16:00 03/09/17 05:13 Dextrose IVPB 166.667 mls/hr BID@0400,1600 KARYNA Administration Insulin Aspart 1 vial 03/07/17 16:30 03/09/17 06:35 Novolog Vial Sliding Scale - SQ 4 units ACHS KARYNA Administration Protocol Insulin Detemir 12 units 03/08/17 22:00 03/08/17 22:03 Levemir Vial SQ 12 units HS KARYNA Administration CBC, BMP 03/09/17 06:30 03/09/17 06:30 Microbiology 03/07/17 11:30 Tissue-Other Gram Stain - Final 03/07/17 11:30 Tissue-Other Anaerobic Culture - Final Mr S Aureus NO ANAEROBES WERE ISOLATED 03/07/17 11:30 Abscess Gram Stain - Final 03/07/17 11:30 Abscess Gram Stain - Final 03/06/17 12:40 Urine - Urine Clean Catch Urine Culture - Final Klebsiella Pneumoniae 03/07/17 11:30 Abscess Wound Culture - Preliminary Presumptive Mrsa (Pbp2a Pos) 03/07/17 11:30 Abscess Wound Culture - Preliminary Presumptive Mrsa (Pbp2a Pos) 03/06/17 12:45 Blood - Peripheral Venous Blood Culture - Preliminary NO GROWTH OBTAINED AFTER 48 HOURS, INCUBATION TO CONTINUE FOR 3 DAYS. ASSESSMENT/PLAN: 56 year old male with PMHx of DM admitted with left axillary swelling, erythema , drainage after possible bug bite on 02/27. # Abscess of LUE - POD#2 from OR drainage - Wound cultures show +MRSA - Blood culture negative to date - Continue Vancomycin (Day 4) for MRSA --> Can switch to Bactrim DS x 1 week upon discharge - Klebsiella in urine, but no dysuria, freq, or urgency, so treatment on hold for now To discuss w/ Dr Pepe. Will follow Obed Fletcher MD - PGY1 Infectious Disease Visit type - Emergency Visit Emergency Visit: No - New Patient This patient is new to me today: No - Critical Care Critical Care patient: No - Discharge Referral Referred to [facility] No
[2017-03-09 12:29] VITALS: BP 140/81
--- NOTE | 2017-03-09 12:40 | PN ---
Teaching Attending Note Name of Resident: Obed Fletcher ATTENDING PHYSICIAN STATEMENT I saw and evaluated the patient. I reviewed the resident's note and discussed the case with the resident. I agree with the resident's findings and plan as documented. SUBJECTIVE: Less arm pain No fever/ chills OBJECTIVE: L UE wound packed Decreased induration ASSESSMENT AND PLAN: S/P I&D L UE soft tissue abscess MRSA May substitute po Bactrim DS bid x 7d
[2017-03-09 13:49] VITALS: PULSE 91; TEMP 98.4
--- NOTE | 2017-03-09 15:24 | DS ---
Physical Exam: SUBJECTIVE: Patient seen and examined. He feels well, ready for dc. Denies fever , chills, no foul drainage OBJECTIVE: Vital Signs Period Temp Pulse Resp BP Sys/Calles Pulse Ox Last 24 Hr 98.4 F-98.9 F 86-108 16-20 131-145/77-84 96 PE Neuro: alert, awake, cn 2-12 intact Pulm: CTAB CV: s1 s2 rrr no mrg Abd: s nt nd + bs Ext: LUE incision clean, no drainage, surround erythema- improved, indurated, wound [id number] Laboratory Results - last 24 hr 03/09/17 03/09/17 03/09/17 06:30 06:30 06:30 WBC 7.7 RBC 3.69 L Hgb 11.2 L Hct 32.7 L MCV 88.6 MCH 30.4 MCHC 34.3 RDW 13.1 Plt Count 241 MPV 9.7 Neutrophils % 68.8 Lymphocytes % 18.8 D Monocytes % 6.1 Eosinophils % 5.7 H Basophils % 0.6 Sodium 138 Potassium 4.2 Chloride 104 Carbon Dioxide 26 Anion Gap 8 BUN 18 Creatinine 1.1 POC Glucometer Random Glucose 256 H Hemoglobin A1c % 7.9 H Calcium 8.2 L HOSPITAL COURSE: Date of Admission:03/06/17 Date of Discharge: 03/09/17 Minutes to complete discharge: 37 Discharge Summary Reason For Visit: CELLULITIS Current Active Problems Abscess (Acute) Cellulitis (Acute) Diabetes 1.5, managed as type 2 (Acute) Sepsis affecting skin (Acute) Hospital Course: Initial Hospital Course: Briefly, this 56 year old male with PMHx of DM presented with left axillary swelling, erythema, drainage after a bug bite on 02/27. The patient reported he got a bug bite on 02/27 after playing golf. It was erythematous and he took Benadryl and put Benadryl cream on it for itching. Later in the week it became larger and he developed chills. He then noticed drainage and decided to come into the ED. He denies any fevers stating he did not take his temperature at home. Subsequent Hospital Course/Progress Note/Discharge Summary by a/p: A: 56 year old male with PMHx of DM admitted with left axillary swelling, erythema, drainage after a bug bite on 02/27/17. Plan: 1. Sepsis 2/2 left upper extremity cellulitis - s/p I&D in OR 03/07 - MRSA positive wound - s/p Vanco and zosyn - Home with bactrim DS bid x7 - Daily dressing changes with 4x4s, betadine soak, abd pad, wrapped in kerlex, pt niece is RN she will change dressing 2. Klebsiella UTI - Abx as above 3. DM II - Hgb a1c 8 - D/w Pt to hold metformin until finish abx. - Can continue glipizide - Hold lisinopril until finish antibiotics Dispo: - Home with above meds and followup with wound care/Dr. Valdovinos - Discussed with to hold metformin and lisinopril x1 week while on abx, resume when completed and keep scheduled PCP appt on 03/23 Condition: Stable - Instructions Diet, Activity, Other Instructions: Please return to the ED for for any new, persistent, or worsening symptoms. Follow up with your PCP in 1 week Continue home meds as directed Continue antibiotics as directed and until compete Daily wound care and follow up in wound care clinic or Dr Valdovinos (referral enclosed) WOUND CARE - IRRIGATE AREA WITH NORMAL SALINE AND PACK WITH BETADINE SOAKED KERLIX/GAUZE. COVER WITH DRY DRESSING DAILY. Referrals: Mike Valdovinos MD [Staff Physician] - Xavier Ardon [Non Staff, Medical] - Disposition: HOME - Home Medications Comprehensive Discharge Medication List: Ambulatory Orders Glipizide [Glipizide ER] 10 mg PO DAILY 03/06/17 Metformin HCl 500 mg PO BID 03/06/17 Sulfamethoxazole/Trimethoprim [Bactrim Ds -] 1 tab PO BID #14 tablet 03/09/17 This patient is new to me today: No Emergency Visit: Yes ED Registration Date: 03/06/17 Care time: The patient presented to the Emergency Department on the above date and was hospitalized for further evaluation of their emergent condition. Critical Care patient: No - Discharge Referral Referred to [facility] No
--- NOTE | 2017-03-09 17:15 | PATH ---
Surgical Pathology Report Patient Name: DOMINIQUE HARRIS [facility]. Rec. #: [id number] /Age/Gender: 1960 (Age: 56) / M Account: [id number] Location: [address] [place] [address]/[facility] Taken: 03/07/2017 Received: 03/07/2017 Reported: 03/09/2017 Physicians: Mike Valdovinos M.D. Specimen(s) Received LEFT UPPER ARM DEBRIDED NECROTIC TISSUE Clinical History Left upper arm abscess Final Diagnosis SKIN AND SOFT TISSUE, UPPER ARM, LEFT, DEBRIDEMENT: SKIN AND UNDERLYING SOFT TISSUE WITH ACUTE SUPPURATIVE INFLAMMATION AND ABSCESS FORMATION. Electronically Signed Nano Clemons M.D. Gross Description Received in formalin labeled "left upper arm debridement necrotic tissue," are 2 gaona, irregular, unoriented portions of necrotic skin with underlying soft tissue measuring 2.2 x 1.7 x 1.0 cm and 5.0 x 2.2 x 0.8 cm. Property Management Specialist sections are submitted in one cassette. /03/07/2017 [facility]03/07/2017
== END 2017-03-09 15:50 | disposition home or self-care (01) | DRG 720 ==
LOC: JER 11:33 → JERBED 14:53 → J5S 03-07 15:36
PROVIDERS: ADMIT Internal Medicine; ATTEND Nurse Practitioner Acute Care
PROC: 0X950ZX Drainage of Left Axilla, Open Approach, Diagnostic (ICD-10-PCS; 2017-03-07)
PROC: 0JBF0ZZ Excision of Left Upper Arm Subcutaneous Tissue and Fascia, Open Approach (ICD-10-PCS; principal; 2017-03-07 10:45)
DX: A41.9 Sepsis, unspecified organism (principal); L03.114 Cellulitis of left upper limb; L03.112 Cellulitis of left axilla; L02.414 Cutaneous abscess of left upper limb; E11.9 Type 2 diabetes mellitus without complications; S40.862A Insect bite (nonvenomous) of left upper arm, initial encounter; N39.0 Urinary tract infection, site not specified; B96.1 Klebsiella pneumoniae [K. pneumoniae] as the cause of diseases classified elsewhere; Z86.14 Personal history of Methicillin resistant Staphylococcus aureus infection; E66.8 Other obesity; Z68.41 Body mass index [BMI] 40.0-44.9, adult
CPT/HCPCS: 36415; 76882; 80048; 80053; 81003; 81015; 82550; 82553; 82803; 83036; 83605; 83735; 84100; 84484; 85025; 85610; 85651; 85730; 86140; 86850; 86900; 86901; 87040; 87070; 87075; 87086; 87186; 87205; 88304-TC; 93005; 93010; 94760; 99285-25; J1644

== ENCOUNTER 2017-10-18 11:42 | Emergency (ER) | payer OTHER ==
[2017-10-18 11:51] VITALS: BP 144/72; PULSE 102; TEMP 98.5; BMI 39.0
--- NOTE | 2017-10-18 14:14 | PDOC ---
Rapid Medical Evaluation Chief Complaint: Abscess Boil Time Seen by Provider: 10/18/17 14:08 Medical Evaluation: Allergies Allergy/AdvReac Type Severity Reaction Status Date / Time No Known Allergies Allergy Verified 10/18/17 11:46 Vital Signs Temp Pulse Resp BP Pulse Ox 98.5 F 102 H 18 144/72 100 10/18/17 11:47 10/18/17 11:47 10/18/17 11:47 10/18/17 11:47 10/18/17 11:47 10/18/17 14:08 Pt. presents to the ED with 5 days of abscess to the back of the neck. Hx of surgical drainage for prior abscesses. Pt. diabetic. Exam: ambulatory, breathing easily. Large indurated area [id number] at the nape of the neck with no fluctuance. Orders: Basic labs, IV insert Pt. to proceed to main ED for further evaluation. Discharge Disposition - Discharge Dispostion Last Admission D/C Date: 03/09/17 - Referrals - Patient Instructions - Post Discharge Activity
[2017-10-18 14:50] LABS: BASO % 0.4 % (0-2.0); EOS % 1.8 % (0-4.5); HEMATOCRIT 38.4 % (35.4-49); HEMOGLOBIN 13.1 GM/dL (11.7-16.9); LYMPH % 16.7 % (8-40); MCH 30.5 pg (25.7-33.7); MCHC 34.2 g/dl (32.0-35.9); MEAN PLT VOLUME 9.8 fl (7.5-11.1); MONO % 6.4 % (3.8-10.2); NEUT % 74.7 % (42.8-82.8); PLATELET COUNT 231 K/MM3 (134-434); RBC 4.32 M/mm3 (4.00-5.60); WHITE BLOOD COUNT 8.3 K/mm3 (4.0-10.0)
[2017-10-18 15:05] LABS: INR 1.11 (0.82-1.09); PROTHROMBIN TIME (PATIENT) 12.5 SEC (9.7-13.0)
[2017-10-18 15:05] LABS: URINE APPEARANCE CLEAR; URINE BILIRUBIN NEGATIVE (<2.0 mg/dL); URINE COLOR LTYELLOW; URINE GLUCOSE (UA) 3+ (NEGATIVE); URINE KETONE NEGATIVE (NEGATIVE); URINE LEUK ESTERASE NEGATIVE (NEGATIVE); URINE NITRITE NEGATIVE (NEGATIVE); URINE PROTEIN NEGATIVE (NEGATIVE); URINE UROBILINOGEN NEGATIVE mg/dL (0.2-1.0)
[2017-10-18 15:13] LABS: ALBUMIN 3.4 g/dl (3.4-5.0); ANION GAP 8 (8-16); BLOOD UREA NITROGEN 25 mg/dL (7-18); CALCIUM 9.2 mg/dL (8.5-10.1); CHLORIDE 112 mmol/L (98-107); CO2 22 mmol/L (21-32); CREATININE 1.2 mg/dL (0.7-1.3); GLUCOSE,RANDOM 204 mg/dL (74-106); POTASSIUM 4.7 mmol/L (3.5-5.1); SGOT/AST 16 U/L (15-37); SGPT/ALT 26 U/L (12-78); SODIUM 142 mmol/L (136-145)
[2017-10-18 15:22] LABS: ALK PHOS 106 U/L (45-117); BILIRUBIN,TOTAL 0.2 mg/dL (0.2-1.0); TOT PROT 7.6 g/dl (6.4-8.2)
--- NOTE | 2017-10-18 15:43 | PDOC ---
Attending Attestation - Resident Resident Name: Dayna Estradaony - ED Attending Attestation I have performed the following: I have examined & evaluated the patient, The case was reviewed & discussed with the resident, I agree w/resident's findings & plan - HPI HPI: 10/18/17 15:38 57-year-old female diabetic with history of MRSA presents with increasing posterior neck lesion/abscess for about one week. No measured fevers or chills, one episode of night sweats. No throat pain or neck stiffness, baseline glucose levels. - Physicial Exam PE: 10/18/17 15:38 Afebrile. Heart rate 84 on my examination Seated comfortably in chair speaking full sentences, no acute distress obese, hirsuit There is a 7 x 4 cm area of erythematous/warm induration to the back of the neck with central area of fluctuance but no active discharge or bleeding. There is full range of motion of the neck, the oropharynx is clear, the patient is nontoxic appearing, and he is tolerating secretions with clear voice. - Medical Decision Making 10/18/17 15:39 57-year-old male diabetic with history of MRSA p/w posterior neck abscess. nontoxic appearing, neuro intact, and with no oropharyngeal or airway involvement. labs sent and wnl, wbc 8.3 with normal diff, glucose slightly elevated but normal AG will I+D, d/c on abx with strict f/u and wound check 10/18/17 15:59 INCISION AND DRAINAGE PROCEDURE: The skin was prepped with Betadine solution. 2% lidocaine was injected subcutaneously for local anesthesia. Incision of the center of the abscess was performed with a #11 blade. Large amount of purulent material was expressed from the incision. A culture was sent. A curved clamp was used to break up loculations within the abscess. Further purulent material was expressed from the incision. Gauze packing was placed within the wound. A clean, dry, sterile dressing was placed. Patient was advised regarding wound care and followup for packing removal. tolerated well, feels well, remains nvi with hemostasis of wound. strict wound check in 48h, understand return criteria for earlier visit.
[2017-10-18] MEDS ORDERED: SULFAMETHOXAZOLE/TRIMETHOPRIM 800MG/160MG D.S. TABLET PO ONE (16:02)
--- NOTE | 2017-10-18 16:17 | PDOC ---
History of Present Illness - General Chief Complaint: Abscess Boil Stated Complaint: WOUND ON NECK Time Seen by Provider: 10/18/17 14:08 History Source: Patient Exam Limitations: No Limitations - History of Present Illness Initial Comments: 10/18/17 16:16 The patient is a 57M with a PMH of DM and MRSA infection who presents with worsening abscess. The patient states that he first noticed a zit on his neck 1 week ago. 5 days ago he noticed that it worsened despite warm compresses. He denies any fever, chills, nausea, vomiting, neck pain, CP, SOB. Past History - Past Medical History Allergies/Adverse Reactions: Allergies Allergy/AdvReac Type Severity Reaction Status Date / Time No Known Allergies Allergy Verified 10/18/17 11:46 Home Medications: Ambulatory Orders Glipizide [Glipizide ER] 10 mg PO DAILY 03/06/17 Metformin HCl 500 mg PO BID 03/06/17 Sulfamethoxazole/Trimethoprim [Bactrim Ds -] 1 tab PO BID #14 tablet 03/09/17 Sulfamethoxazole/Trimethoprim [Bactrim Ds -] 2 tab PO BID #40 tablet 10/18/17 COPD: No DVT: No Diabetes: Yes Hypercholesterolemia: Yes - Suicide/Smoking/Psychosocial Hx Smoking History: Never smoked Have you smoked in the past 12 months: No Information on smoking cessation initiated: No Hx Alcohol Use: No Drug/Substance Use Hx: No Substance Use Type: None Review of Systems - Review of Systems Able to Perform ROS?: Yes Comments:: 10/18/17 16:24 GENERAL/CONSTITUTIONAL: No fever or chills. No weakness. HEAD, EYES, EARS, NOSE AND THROAT: No change in vision. No ear pain or discharge. No sore throat. CARDIOVASCULAR: No chest pain, palpitations, or lightheadedness. RESPIRATORY: No cough, wheezing, shortness of breath, or hemoptysis. GASTROINTESTINAL: No nausea, vomiting, diarrhea, constipation, or abdominal pain. GENITOURINARY: No dysuria, frequency, hematuria, or change in urination. MUSCULOSKELETAL: No joint or muscle swelling or pain. No neck or back pain. SKIN: Positive for abscess. No rash or lesions. NEUROLOGIC: No headache, numbness, tingling, weakness, loss of consciousness, or change in strength/sensation. ENDOCRINE: No increased thirst. No abnormal weight change. HEMATOLOGIC/LYMPHATIC: No anemia, easy bleeding, or history of blood clots. ALLERGIC/IMMUNOLOGIC: No hives or skin allergy. Is the patient limited Panamanian proficient: No *Physical Exam - Vital Signs Last Vital Signs Temp Pulse Resp BP Pulse Ox 98.5 F 102 H 18 144/72 100 10/18/17 11:47 10/18/17 11:47 10/18/17 11:47 10/18/17 11:47 10/18/17 11:47 - Physical Exam Comments: 10/18/17 16:24 GENERAL: Well developed, well nourished. Awake and alert. No acute distress. HEENT: Normocephalic, atraumatic. Hearing grossly normal. Moist mucous membranes. PERRLA, EOMI. No conjunctival pallor. Sclera are non-icteric. Oropharynx is clear. NECK: Supple. Full ROM. CARDIOVASCULAR: Regular rate and rhythm. No murmurs, rubs, or gallops. Distal pulses are 2+ and symmetric. PULMONARY: No evidence of respiratory distress. Lungs clear to auscultation bilaterally. No wheezing, rales or rhonchi. ABDOMINAL: Soft. Non-tender. Non-distended. No rebound or guarding. No organomegaly. Normoactive bowel sounds. GENITOURINARY: No CVA tenderness bilaterally. MUSCULOSKELETAL: Normal range of motion at all joints. No bony deformities or tenderness. EXTREMITIES: No cyanosis. No clubbing. No edema. No calf tenderness or swelling. SKIN: Warm and dry. 5cmx10.5cm abscess on posterior neck, indurated, and well- demarcated. Normal capillary refill. No jaundice. NEUROLOGICAL: Alert, awake, appropriate. Cranial nerves 2-12 intact. Normal speech. Gait is normal without ataxia. PSYCHIATRIC: Cooperative. Good eye contact. Appropriate mood and affect. Procedures - Incision and Drainage I&D Site: Bilateral: Other (Neck, posterior) Betadine cleansed: No Anesthesia: 1% Lidocaine Blade Size: 11 Attempts: 1 Iodinated Packin/2 in Complications: none Dressing: Yes (Sterile) ED Treatment Course - LABORATORY CBC & Chemistry Diagram: 10/18/17 14:32 10/18/17 14:32 - ADDITIONAL ORDERS Additional order review: Laboratory Results 10/18/17 10/18/17 10/18/17 14:53 14:32 14:32 PT with INR INR Sodium 142 Potassium 4.7 Chloride 112 H Carbon Dioxide 22 Anion Gap 8 BUN 25 H D Creatinine 1.2 Creat Clearance w eGFR > 60 Random Glucose 204 H D Calcium 9.2 Total Bilirubin 0.2 D AST 16 D ALT 26 D Alkaline Phosphatase 106 Total Protein 7.6 Albumin 3.4 D Urine Color Ltyellow Urine Appearance Clear Urine pH 5.0 Ur Specific [place] 1.020 Urine Protein Negative Urine Glucose (UA) 3+ H Urine Ketones Negative Urine Blood Negative Urine Nitrite Negative Urine Bilirubin Negative Urine Urobilinogen Negative Ur Leukocyte Esterase Negative Blood Type O POSITIVE Antibody Screen Negative 10/18/17 14:32 PT with INR 12.50 INR 1.11 Sodium Potassium Chloride Carbon Dioxide Anion Gap BUN Creatinine Creat Clearance w eGFR Random Glucose Calcium Total Bilirubin AST ALT Alkaline Phosphatase Total Protein Albumin Urine Color Urine Appearance Urine pH Ur Specific [place] Urine Protein Urine Glucose (UA) Urine Ketones Urine Blood Urine Nitrite Urine Bilirubin Urine Urobilinogen Ur Leukocyte Esterase Blood Type Antibody Screen 10/18/17 14:32 RBC 4.32 MCV 89.0 MCHC 34.2 RDW 13.0 MPV 9.8 Neutrophils % 74.7 Lymphocytes % 16.7 Monocytes % 6.4 Eosinophils % 1.8 Basophils % 0.4 Medical Decision Making - Medical Decision Making 10/18/17 16:26 The patient is a 57M with a PMH of DM who presents with a worsening abscess. I and D was done at bedside and abscess was packed. Will d/c with bactrim and told to f/u in 2 days in the morning. Pt agrees and is ready for d/c. *DC/Admit/Observation/Transfer Diagnosis at time of Disposition: Abscess - Discharge Dispostion Disposition: HOME Condition at time of disposition: Stable Decision to Admit order: No - Prescriptions Prescriptions: Sulfamethoxazole/Trimethoprim [Bactrim Ds -] 2 tab PO BID #40 tablet - Referrals - Patient Instructions Printed Discharge Instructions: DI for Incision and Drainage of a Skin Abscess Additional Instructions: Please keep the current dressing on and dry for 48 hours. Use tylenol/motrin as needed for pain. Please return morning for follow up. Please return to the ER if you have any signs or symptoms of chest pain, shortness of breath, uncontrollable fever, chills, nausea, vomiting, numbness, tingling, or weakness in any part of your body, changes in vision, or slurred speech. Please take your medications as prescribed. Please return to the ER if symptoms persist, worsen, or new symptoms arise. - Post Discharge Activity
[2017-10-18] MEDS ORDERED: SULFAMETHOXAZOLE/TRIMETHOPRIM 800MG/160MG D.S. TABLET ONE (16:29)
== END 2017-10-18 16:33 | disposition home or self-care (01) ==
LOC: JER 11:42
PROC: 0J950ZZ Drainage of Left Neck Subcutaneous Tissue and Fascia, Open Approach (ICD-10-PCS; principal; 2017-10-18)
PROC: 0J940ZZ Drainage of Right Neck Subcutaneous Tissue and Fascia, Open Approach (ICD-10-PCS; 2017-10-18)
DX: L02.11 Cutaneous abscess of neck (principal)
CPT/HCPCS: 36415; 71046-TC-FY; 80053; 81003; 85025; 85610; 86850; 86900; 86901; 87040; 87070; 87086; 87186; 87205; 99282-25

== ENCOUNTER 2017-10-20 07:34 | Emergency (ER) | payer OTHER ==
[2017-10-20 07:39] VITALS: BP 166/80; PULSE 100; TEMP 98.7; BMI 39.0
--- NOTE | 2017-10-20 07:58 | PDOC ---
Attending Attestation - Resident Resident Name: José Antonio Ramires - ED Attending Attestation I have performed the following: I have examined & evaluated the patient, The case was reviewed & discussed with the resident, I agree w/resident's findings & plan - HPI HPI: 10/20/17 08:02 The patient is a 57 year old male, with a significant past medical history of diabetes and MRSA who presents to the emergency department for follow-up of approximately 1.5 week posterior neck lesion/abscess. He reports the abscess is still actively draining, but denies increased erythema or pain. Patient denies any associated fever, chills, neck or back pain, neck stiffness, sore throat, numbness, or tingling. Patient is currently on Bactrim. He denies any recent travel or sick contacts. Allergies: NKDA - Medical Decision Making 10/20/17 08:02 Documentation prepared by Gloria Brito, acting as medical technical writer for Yoanna Lynch MD. <Gloria Brito - Last Filed: 10/20/17 08:14> - Physicial Exam PE: 10/20/17 08:20 Agree with resident exam. Patient has draining abscess with a 2 cm surrounding area of induration. + active drainage from the wound. - Medical Decision Making Pt presents to the ED for wound check for neck abscess. Surrounding cellulitis does not appear to be spreading, but wound is continuing to drain. Will leave packing, continue antibiotics and return for wound check in two days. 10/20/17 08:21 <Yoanna Lynch - Last Filed: 10/20/17 08:25>
--- NOTE | 2017-10-20 08:01 | PDOC ---
History of Present Illness - General Chief Complaint: Revisit,Wound Recheck Stated Complaint: FOLLOW UP Time Seen by Provider: 10/20/17 07:53 - History of Present Illness Initial Comments: 10/20/17 08:04 The patient is a 57 year old male with a history of DM, HTN who presents for a wound check. The patient reports having an abscess to his neck drained 2 days ago in our ED and returns for a wound check. He reports continued drainage from the wound, but denies pain, fevers, chills, or difficulty moving his neck. He notes that he continues with his dressing changes and antibiotics that were prescribed to him. He otherwise denies SOB, chest pain, nausea, vomiting, abdominal pain, or changes with urination or bowel movements. Past History - Past Medical History Allergies/Adverse Reactions: Allergies Allergy/AdvReac Type Severity Reaction Status Date / Time No Known Allergies Allergy Verified 10/20/17 07:36 Home Medications: Ambulatory Orders Glipizide [Glipizide ER] 10 mg PO DAILY 03/06/17 Metformin HCl 500 mg PO BID 03/06/17 Sulfamethoxazole/Trimethoprim [Bactrim Ds -] 1 tab PO BID #14 tablet 03/09/17 Sulfamethoxazole/Trimethoprim [Bactrim Ds -] 2 tab PO BID #40 tablet 10/18/17 COPD: No DVT: No Diabetes: Yes Hypercholesterolemia: Yes - Suicide/Smoking/Psychosocial Hx Smoking History: Never smoked Have you smoked in the past 12 months: No Information on smoking cessation initiated: No Hx Alcohol Use: No Drug/Substance Use Hx: No Substance Use Type: None Review of Systems - Review of Systems Comments:: 10/20/17 08:21 Constitutional: No fevers, chills, fatigue, malaise HEENT: Abscess to Posterior Neck. No Rhinorrhea, nasal congestion, visual changes Cardiovascular: No chest pain, syncope, palpitations, lightheadedness Respiratory: No Cough, SOB, Hemoptysis, Gastrointestinal: No Abdominal pain, Nausea, Vomiting, Constipation, Diarrhea, Melena Genitourinary: No Dysuria, Frequency, Urgency, Hesitancy, Hematuria, Flank pain Musculoskeletal: No Myalgia, arthralgia Skin: No rashes, itching, bruising, pallor Neurologic: No Headache, Dizziness, Numbness, Weakness, or Tingling Psychiatric: No Hallucinations. No SI or HI *Physical Exam - Vital Signs Last Vital Signs Temp Pulse Resp BP Pulse Ox 98.7 F 100 H 18 166/80 100 10/20/17 07:36 10/20/17 07:36 10/20/17 07:36 10/20/17 07:36 10/20/17 07:36 - Physical Exam Comments: 10/20/17 08:21 General Appearance: Nourished. No Apparent Distress HEENT:Abscess to the midline posterior neck with packing in place draining purulent fluid without surrounding erythema, warmth or tenderness. No Pharyngeal Erythema, Tonsillar Exudate, Tonsillar Erythema Neck: No Cervical Lymphadenopathy Respiratory/Chest: Lungs Clear, Normal Breath Sounds. No Crackles, Rales, Rhonchi, Wheezing Cardiovascular: Regular Rhythm, Regular Rate. No Murmur, Gallops, Rubs Gastrointestinal/Abdominal: Normal Bowel Sounds, Soft. No Guarding, Rebound, Tenderness Musculoskeletal: No CVA Tenderness Extremity: Normal Capillary Refill Integumentary: Normal Color, Dry, Warm Neurologic: Fully Oriented, Alert, Normal Mood/Affect, Normal Response, Medical Decision Making - Medical Decision Making 10/20/17 08:23 The patient is a 57 year old male with a history of DM, HTN who presents for a wound check. Given the patient's wound evaluation, it continues to drain fluid and thus continues to require packing in place. The patient will need to return to the ED in 2 days for another wound check and will continue to need to take his antibiotics. He does not demonstrate any signs of systemic infection at this time and the abscess appears to be healing appropriately. We discussed the plan with the patient who voiced understanding and is agreeable with the plan. *DC/Admit/Observation/Transfer Diagnosis at time of Disposition: Abscess - Discharge Dispostion Disposition: HOME Condition at time of disposition: Stable Decision to Admit order: No - Referrals Referrals: Abner Barker MD [Staff Physician] - - Patient Instructions Printed Discharge Instructions: DI for Skin Abscess Additional Instructions: Please return to the ER in 2 days for a wound check given your abscess is continuing to drain fluid. Continue to keep the wound clean and continue to take the antibiotics that were prescribed to you. Please return to the ER if you experience concerning or worsening symptoms including fevers, chills, worsening pain. - Post Discharge Activity
--- NOTE | 2017-10-20 09:06 | PDOC ---
Patient Follow-up (Call Back) - Post ED Follow - Up Condition at time of discharge: Stable Disposition at time of original discharge: HOME Reason for Call Back: Abnwl. Microbiology (Pt. with suspected MRSA from wound on neck. Pt. appropriatley placed on Bactrim.)
== END 2017-10-20 08:21 | disposition home or self-care (01) ==
LOC: JER 07:34
DX: L02.11 Cutaneous abscess of neck (principal); A49.02 Methicillin resistant Staphylococcus aureus infection, unspecified site
CPT/HCPCS: 99282-25

== ENCOUNTER 2017-10-22 07:28 | Emergency (ER) | payer OTHER ==
[2017-10-22 07:31] VITALS: PULSE 72; TEMP 98.7; BMI 38.4
[2017-10-22 07:32] VITALS: BP 143/68
--- NOTE | 2017-10-22 07:45 | PDOC ---
History of Present Illness - General Chief Complaint: Revisit,Wound Recheck Stated Complaint: RE VISIT Time Seen by Provider: 10/22/17 07:45 - History of Present Illness Initial Comments: 57 year old male with NIDDM, HTN, and HLD presenting for a wound check after an I&D of a posterior neck abscess 4 days prior. Patient is still on Bactrim and reports feeling much better (reduction of pain and discomfort with minimal drainage). Denies fevers, chills, nausea, vomiting, diarrhea, or other symptoms. 10/22/17 08:07 Past History - Past Medical History Allergies/Adverse Reactions: Allergies Allergy/AdvReac Type Severity Reaction Status Date / Time No Known Allergies Allergy Verified 10/22/17 07:31 Home Medications: Ambulatory Orders Glipizide [Glipizide ER] 10 mg PO DAILY 03/06/17 Metformin HCl 500 mg PO BID 03/06/17 Sulfamethoxazole/Trimethoprim [Bactrim Ds -] 1 tab PO BID #14 tablet 03/09/17 Sulfamethoxazole/Trimethoprim [Bactrim Ds -] 2 tab PO BID #40 tablet 10/18/17 COPD: No DVT: No Diabetes: Yes Hypercholesterolemia: Yes - Suicide/Smoking/Psychosocial Hx Smoking History: Never smoked Have you smoked in the past 12 months: No Hx Alcohol Use: No Drug/Substance Use Hx: No Substance Use Type: None Review of Systems - Review of Systems Constitutional: No: Chills, Diaphoresis, Fever, Loss of Appetite HEENTM: No: Eye Pain, Blurred Vision, Tearing Respiratory: No: Cough, Orthopnea, Shortness of Breath Cardiac (ROS): No: Chest Pain, Edema, Irregular Heart Rate ABD/GI: No: Diarrhea, Nausea, Vomiting : No: Burning, Dysuria, Discharge Musculoskeletal: No: Back Pain, Gout, Joint Pain Integumentary: No: Bruising, Change in Color, Lesions Neurological: No: Headache, Numbness, Paresthesia Psychiatric: No: Anxiety, Depression *Physical Exam - Vital Signs Last Vital Signs Temp Pulse Resp BP Pulse Ox 98.7 F 72 18 143/68 99 10/22/17 07:29 10/22/17 07:29 10/22/17 07:29 10/22/17 07:29 10/22/17 07:29 - Physical Exam General Appearance: Yes: Nourished, Appropriately Dressed. No: Apparent Distress HEENT: positive: EOMI, ÁNGELA, Normal ENT Inspection Neck: positive: Trachea midline, Normal Thyroid, Supple. negative: Tender, Rigid Respiratory/Chest: positive: Lungs Clear, Normal Breath Sounds. negative: Chest Tender, Respiratory Distress, Accessory Muscle Use Cardiovascular: positive: Regular Rhythm, Regular Rate Gastrointestinal/Abdominal: positive: Normal Bowel Sounds, Flat. negative: Tender Musculoskeletal: positive: Normal Inspection. negative: CVA Tenderness Extremity: positive: Normal Capillary Refill, Normal Inspection, Normal Range of Motion. negative: Tender Integumentary: positive: Normal Color, Dry, Warm, Erythema, Other (2 cm incision with packing in place and minimal serous drainage. 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 Wound appears to be healing well as it was expertly performed by Dr. Estrada 4 days prior. Packing removed and light 2x2 gauze placed over the top of the wound. Instructions and follow up given. 10/22/17 08:16 *DC/Admit/Observation/Transfer Diagnosis at time of Disposition: Wound check, abscess - Discharge Dispostion Disposition: HOME Condition at time of disposition: Improved Decision to Admit order: No - Referrals Referrals: [facility] [place] [facility] [place] [Provider Group] - Patient Instructions Printed Discharge Instructions: DI for Wound Infection Additional Instructions: Please use soap and water to clean the outside of the wound and do not soak it. Keep it lightly covered with one piece of tape and light gauze dressing. Please avoid water activities for the next week until it is closed. Please follow up with your PCP at the clinic listed for a checkup within a week. Please return to the ED if it starts to swell again. - Post Discharge Activity
--- NOTE | 2017-10-22 08:13 | PDOC ---
Attending Attestation - Resident Resident Name: Yeison Talley - ED Attending Attestation I have performed the following: I have examined & evaluated the patient, The case was reviewed & discussed with the resident, I agree w/resident's findings & plan, Exceptions are as noted - HPI HPI: 10/22/17 08:05 57 y M s/p i&C neck abscess here with c/o needing packing removal. performed on 10/18 no f/c taking bactrim. - Physicial Exam PE: 10/22/17 08:07 awake alert. wound cdi. packing removed, exudate on packing. min surrounding erythema. - Medical Decision Making 10/22/17 08:12 plan continue to clean daily. continue bactrim. followup [facility].
== END 2017-10-22 08:30 | disposition home or self-care (01) ==
LOC: JER 07:28
DX: Z48.817 Encounter for surgical aftercare following surgery on the skin and subcutaneous tissue (principal); Z48.01 Encounter for change or removal of surgical wound dressing
CPT/HCPCS: 99281-25

== ENCOUNTER 2018-02-01 11:51 | Inpatient (IN) | payer OTHER ==
--- NOTE | 2018-02-01 14:20 | PDOC ---
History of Present Illness - General Chief Complaint: Wound Stated Complaint: INFECTION ON RT HAND History Source: Patient Exam Limitations: No Limitations - History of Present Illness Initial Comments: 02/01/18 14:14 57 yo male pmh of type 2 DM, hypertension and multiple abscesses (1 surgically drained and the other I&D in the ED 10/2017) presents to the ED form home for a swelling to the dorsum of the right hand. Patient states he was out playing golf Tuesday and noticed mild swelling Tuesday morning to the affected area. States he thinks he may have been bitten by something but does not recall a specific event. Patient states the swelling got worse and became painful yesterday and had minor drainage of yellow fluid with a little blood. States he had left over Bactrim (800mg) from last abscess and took 2 pills Tuesday and Tuesday; currently ran out. Advil relieved the pain somewhat. Patient denies having f/c/n/v but did not have these s/s with past abscesses. Denies weakness or sensory deficits in the affected hand. Denies changes in bowel/bladder habits , CP,SOB or abdominal pain. Past History - Past Medical History Allergies/Adverse Reactions: Allergies Allergy/AdvReac Type Severity Reaction Status Date / Time No Known Allergies Allergy Verified 02/01/18 11:59 Home Medications: Ambulatory Orders Glipizide [Glipizide ER] 10 mg PO DAILY 03/06/17 metFORMIN HCL [Metformin HCl] 500 mg PO BID 03/06/17 COPD: No DVT: No Diabetes: Yes Hypercholesterolemia: Yes - Suicide/Smoking/Psychosocial Hx Smoking History: Never smoked Have you smoked in the past 12 months: No Information on smoking cessation initiated: No Hx Alcohol Use: No Drug/Substance Use Hx: No Substance Use Type: None Review of Systems - Review of Systems Constitutional: No: Chills, Fever, Weakness Respiratory: No: Shortness of Breath Cardiac (ROS): No: Chest Pain, Edema ABD/GI: Yes: Other (no abdominal pain). No: Constipated, Diarrhea, Nausea, Vomiting : No: Burning, Dysuria Integumentary: Yes: Erythema, Other (swelling with drainage ). No: Pruritus Neurological: No: Weakness *Physical Exam - Vital Signs Last Vital Signs Temp Pulse Resp BP Pulse Ox 98.6 F 108 H 16 147/91 100 02/01/18 13:21 02/01/18 13:21 02/01/18 13:21 02/01/18 13:21 02/01/18 13:21 - Physical Exam General Appearance: Yes: Nourished, Appropriately Dressed. No: Apparent Distress HEENT: positive: EOMI Neck: positive: Other (well healed abscess on posterior neck) Respiratory/Chest: positive: Lungs Clear, Normal Breath Sounds. negative: Crackles, Wheezing Cardiovascular: positive: Regular Rhythm, S1, S2. negative: Regular Rate ( tachy at 108 today but on multiple occasions patient found to be tachy), Edema, JVD, Murmur Vascular Pulses: Dorsalis-Pedis (R): 4+, Doralis-Pedis (L): 4+ Gastrointestinal/Abdominal: positive: Normal Bowel Sounds, Flat, Soft. negative : Tender, Pulsatile Mass, Distended, Guarding, Rebound, Tenderness Extremity: positive: Normal Capillary Refill (equal in right and left thumbs), Other (neurovascularly intact, equal strength and sensation to hands bilaterally.) Integumentary: positive: Swelling, Other (drainage noted on gauze yellow. Induration and swelling 5 cm diameter to the dorsum of right thumb with sharp demarcation of erythema. Noted linear streaks of redness to the right forarm; patient denies itching) Neurologic: positive: Fully Oriented, Alert, Normal Mood/Affect, Normal Response , Motor Strength / ED Treatment Course - LABORATORY CBC & Chemistry Diagram: 02/01/18 14:52 02/01/18 15:04 *DC/Admit/Observation/Transfer Diagnosis at time of Disposition: Abscess - Discharge Dispostion Condition at time of disposition: Fair Decision to Admit order: Yes - Referrals - Patient Instructions - Post Discharge Activity
--- NOTE | 2018-02-01 15:07 | PDOC ---
Attending Attestation - Resident Resident Name: TraciSal - ED Attending Attestation I have performed the following: I have examined & evaluated the patient, The case was reviewed & discussed with the resident, I agree w/resident's findings & plan, Exceptions are as noted - HPI HPI: 02/01/18 15:08 The patient is a 57 year old female, with a significant past medical history of hypertension, Diabetes Type II, multiple abscesses, who presents to the emergency department with increased right hand swelling and onset of purulent drainage yesterday. He reportedly played golf on Tuesday and woke up with mild swelling Tuesday. He states he started Bactrim 2 days ago but when he noticed streaking up his R forearm today, he decided to present to the ED. Reports his last A1C was 7.1% a few months ago. The patient denies chest pain, shortness of breath, headache and dizziness. The patient denies fever, chills, nausea, vomit, diarrhea and constipation. The patient denies dysuria, frequency, urgency and hematuria. Allergies: NKDA ID: Dr. Gareth Pepe - Physicial Exam PE: 02/01/18 15:05 agree with resident exam - Medical Decision Making 02/01/18 15:06 57yo M hx MMP including abscesses, DM (recent A1C per pt 7.1%) presents to the ED with R hand abscess and new streaking up forearm despite 2 days of bactrim. Vitals with mild tachycardia. Pt non toxic in appearance but given DM, bactrim failure, pt will require IV abx and admission.
[2018-02-01] MEDS ORDERED: CLINDAMYCIN 600MG PREMIX IVPB 600 MG/50 ML BAG IVPB ONE ×2 (15:11→15:28)
[2018-02-01 15:12] LABS: BASO % 0.3 % (0-2.0); EOS % 0.9 % (0-4.5); HEMATOCRIT 38.4 % (35.4-49); HEMOGLOBIN 13.4 GM/dL (11.7-16.9); LYMPH % 8.9 % (8-40); MCHC 34.8 g/dl (32.0-35.9); MEAN CELL VOLUME 89.1 fl (80-96); MONO % 4.8 % (3.8-10.2); NEUT % 85.1 % (42.8-82.8); PLATELET COUNT 193 K/MM3 (134-434); RBC 4.31 M/mm3 (4.00-5.60); RDW 12.9 % (11.9-15.9)
[2018-02-01 15:32] LABS: ALBUMIN 3.6 g/dl (3.4-5.0); ALK PHOS 94 U/L (45-117); ANION GAP 9 MMOL/L (8-16); BILIRUBIN,TOTAL 0.3 mg/dL (0.2-1.0); BLOOD UREA NITROGEN 22 mg/dL (7-18); CALCIUM 9.4 mg/dL (8.5-10.1); CHLORIDE 107 mmol/L (98-107); CO2 22 mmol/L (21-32); CREATININE 1.2 mg/dL (0.7-1.3); GLUCOSE,RANDOM 225 mg/dL (74-106); POTASSIUM 4.1 mmol/L (3.5-5.1); SGOT/AST 15 U/L (15-37); SGPT/ALT 26 U/L (12-78); SODIUM 138 mmol/L (136-145); TOT PROT 7.6 g/dl (6.4-8.2)
--- NOTE | 2018-02-01 20:49 | HP ---
Admitting History and Physical - Primary Care Physician PCP: Naif Mondragon - Admission History of Present Illness: 57 yo male pmh of type 2 DM, hypertension and multiple abscesses (1 surgically drained and the other I&D in the ED 10/2017) presents to the ED form home for a swelling to the dorsum of the right hand. Patient states he was out playing golf Tuesday night and noticed mild swelling Tuesday morning to the affected area. States he thinks he may have been bitten by something but does not recall a specific event. Patient states the swelling got worse and became painful yesterday and had minor drainage of yellow fluid with a little blood. States he had left over Bactrim (800mg) from last abscess and took 2 pills Tuesday and Tuesday; currently ran out. Advil relieved the pain somewhat. Patient denies having f/c/n/v but did not have these s/s with past abscesses. Denies weakness or sensory deficits in the affected hand. Denies changes in bowel/bladder habits , CP,SOB or abdominal pain. - Past Medical History Cardiovascular: Yes: HTN Endocrine: Yes: Diabetes Mellitus - Smoking History Smoking history: Never smoked Have you smoked in the past 12 months: No - Alcohol/Substance Use Hx Alcohol Use: No Home Medications - Allergies Allergies/Adverse Reactions: Allergies Allergy/AdvReac Type Severity Reaction Status Date / Time No Known Allergies Allergy Verified 02/01/18 11:59 - Home Medications Home Medications: Ambulatory Orders Glipizide [Glipizide ER] 10 mg PO DAILY 03/06/17 metFORMIN HCL [Metformin HCl] 1,000 mg PO BID 03/06/17 Physical Examination Vital Signs: Vital Signs Temperature 98.6 F 02/01/18 13:21 Pulse Rate 108 H 02/01/18 13:21 Respiratory Rate 16 02/01/18 13:21 Blood Pressure 147/91 02/01/18 13:21 O2 Sat by Pulse Oximetry (%) 100 02/01/18 13:21 Constitutional: Yes: No Distress HENT: Yes: Atraumatic Neck: Yes: Supple Cardiovascular: Yes: Regular Rate and Rhythm Respiratory: Yes: CTA Bilaterally Gastrointestinal: Yes: Normal Bowel Sounds Extremities: Yes: WNL Neurological: Yes: Alert, Oriented Labs: CBC, BMP 02/01/18 14:52 02/01/18 15:04 Problem List - Problems (1) Abscess Assessment/Plan: for I and D ..R thumb iv abx Code(s): L02.91 - CUTANEOUS ABSCESS, UNSPECIFIED (2) Diabetes 1.5, managed as type 2 Assessment/Plan: on po meds bgms Code(s): E10.9 - TYPE 1 DIABETES MELLITUS WITHOUT COMPLICATIONS Assessment/Plan Laboratory Tests 02/01/18 02/01/18 14:52 15:04 WBC 9.0 RBC 4.31 Hgb 13.4 Hct 38.4 MCV 89.1 MCH 31.0 MCHC 34.8 RDW 12.9 Plt Count 193 MPV 10.0 Absolute Neuts (auto) 7.6 Neutrophils % 85.1 H Lymphocytes % 8.9 D Monocytes % 4.8 Eosinophils % 0.9 Basophils % 0.3 Nucleated RBC % 0 Sodium 138 Potassium 4.1 Chloride 107 Carbon Dioxide 22 Anion Gap 9 BUN 22 H Creatinine 1.2 Creat Clearance w eGFR > 60 Random Glucose 225 H Calcium 9.4 Total Bilirubin 0.3 AST 15 ALT 26 Alkaline Phosphatase 94 Total Protein 7.6 Albumin 3.6 Active Medications Generic Name Dose Route Start Last Admin Trade Name Freq PRN Reason Stop Dose Admin Acetaminophen 650 mg 02/02/18 21:41 Tylenol - PO Q6H PRN FEVER Glipizide 10 mg 02/03/18 07:00 02/03/18 06:18 Glucotrol Xl - PO 10 mg DAILY@0700 [facility] Administration Vancomycin HCl 1,000 mg/ 250 mls @ 166.667 mls/hr 02/03/18 01:00 02/03/18 12: 30 Dextrose IVPB 166.667 mls/hr Q12H [facility] Administration Protocol Metformin HCl 500 mg 02/03/18 07:00 02/03/18 17:30 Glucophage - PO 500 mg BIDAC [facility] Administration
[2018-02-01] MEDS ORDERED: ACETAMINOPHEN 325 MG TABLET (FP) PO PRN (20:58)
[2018-02-02] MEDS ORDERED: glipiZIDE-XL 10 MG TAB.ER.24 (FP) PO SCH (07:00)
[2018-02-02 07:11] LABS: BASO % 0.3 % (0-2.0); EOS % 2.5 % (0-4.5); HEMATOCRIT 38.3 % (35.4-49); HEMOGLOBIN 13.1 GM/dL (11.7-16.9); LYMPH % 18.1 % (8-40); MCH 30.3 pg (25.7-33.7); MCHC 34.2 g/dl (32.0-35.9); MEAN CELL VOLUME 88.6 fl (80-96); MEAN PLT VOLUME 10.2 fl (7.5-11.1); MONO % 7.2 % (3.8-10.2); NEUT % 71.9 % (42.8-82.8); PLATELET COUNT 181 K/MM3 (134-434); RBC 4.32 M/mm3 (4.00-5.60); RDW 12.9 % (11.9-15.9); WHITE BLOOD COUNT 7.7 K/mm3 (4.0-10.0)
[2018-02-02 07:38] LABS: CHLORIDE 107 mmol/L (98-107); POTASSIUM 4.5 mmol/L (3.5-5.1); SODIUM 138 mmol/L (136-145)
[2018-02-02 07:46] LABS: ALBUMIN 3.2 g/dl (3.4-5.0); ALK PHOS 84 U/L (45-117); ANION GAP 10 MMOL/L (8-16); BILIRUBIN,TOTAL 0.3 mg/dL (0.2-1.0); BLOOD UREA NITROGEN 19 mg/dL (7-18); CALCIUM 9.1 mg/dL (8.5-10.1); CO2 21 mmol/L (21-32); CREATININE 1.1 mg/dL (0.7-1.3); GLUCOSE,RANDOM 213 mg/dL (74-106); SGOT/AST 15 U/L (15-37); SGPT/ALT 27 U/L (13-61); TOT PROT 6.9 g/dl (6.4-8.2)
[2018-02-02] MEDS: metFORMIN HCL 500 MG TABLET (FP) PO SCH ×2 (08:25→16:43)
--- NOTE | 2018-02-02 12:25 | PN ---
Progress Note, Physician History of Present Illness: 57 y.o. male with PMH of DM, HTN, previous Lt upper arm and neck abscesses which were drained ( last in 09/2017) presents with Rt hand swelling that began in the thumb about 5 days ago and worsened. Pt denies fever/chills but noted yellow collection developing with mild drainage from center. He can clench his fist and general doesnt have significant pain in hand but there is tenderness when he tries to lift objects. He has no other specific complaints. - Current Medication List Current Medications: Active Medications Acetaminophen (Tylenol -) 650 mg PO Q6H PRN PRN Reason: FEVER Glipizide (Glucotrol Xl -) 10 mg PO AM [facility] Last Admin: 02/02/18 08:25 Dose: 10 mg Metformin HCl (Glucophage -) 500 mg PO BIDAC [facility] Last Admin: 02/02/18 08:25 Dose: 500 mg - Objective Vital Signs: Vital Signs Temperature 99.2 F 02/02/18 11:32 Pulse Rate 91 H 02/02/18 11:32 Respiratory Rate 18 02/02/18 11:32 Blood Pressure 147/84 02/02/18 11:32 O2 Sat by Pulse Oximetry (%) 97 02/02/18 11:32 Constitutional: Yes: No Distress, Calm HENT: Yes: Atraumatic Neck: Yes: Supple Cardiovascular: Yes: Regular Rate and Rhythm Respiratory: Yes: CTA Bilaterally Gastrointestinal: Yes: Normal Bowel Sounds, Soft Genitourinary: Yes: WNL Musculoskeletal: Yes: Joint Swelling (Rt thumb) Extremities: Yes: Erythema (Rt hand extending from thumb, tracking up to upper forearm), Other (Rt thumb erythema with pustular center with Rt hand swelling) Integumentary: Yes: Erythema Labs: CBC, BMP 02/02/18 06:50 02/02/18 06:50 - ....Imaging X-ray: Report Reviewed Assessment/Plan 57 y.o. male with DM, HTN, previous skin abscesses presents with Rt hand erythema/warmth/swelling extending from Rt thumb and tracking to upper Rt forearm Hand cellulitis / abscess DM -- will start Vancomycin IV -- recommend MRI and surgical evaluation for drainage -- wound cultures -- esr, crp -- needs glycemic control on contact precautions will follow
[2018-02-02] MEDS ORDERED: VANCOMYCIN 1,000 MG in DEXTROSE 5%-WATER - 250 ML IVPB SCH (13:00)
--- NOTE | 2018-02-02 13:28 | CONSULT ---
Consult Consult Specialty:: Hand and Microsurgery Referred by:: Alanna FIORE Reason for Consultation:: right hand abscess - History of Present Illness Chief Complaint: right hand abscess History of Present Illness: 57 yo RHD male PMH hypertension, Diabetes Type II, obeisty multiple abscesses presents to the emergency department with increased right hand swelling and onset of purulent drainage yesterday. Motion of the thumb is limited. He reportedly played golf on Tuesday and woke up with mild swelling Tuesday. He states he started Bactrim 2 days ago but when he noticed streaking up his Right forearm today, he decided to present to the ED. Reports his last A1C was 7.1% a few months ago. We were asked to assess. - History Source History Provided By: Patient, Medical Record Limitations to Obtaining History: No Limitations - Past Medical History Cardio/Vascular: Yes: HTN Endocrine: Yes: Diabetes Mellitus Additional Medical History: obesity - Alcohol/Substance Use Hx Alcohol Use: No - Smoking History Smoking history: Never smoked Have you smoked in the past 12 months: No Home Medications - Allergies Allergies/Adverse Reactions: Allergies Allergy/AdvReac Type Severity Reaction Status Date / Time No Known Allergies Allergy Verified 02/01/18 11:59 - Home Medications Home Medications: Ambulatory Orders Glipizide [Glipizide ER] 10 mg PO DAILY 03/06/17 metFORMIN HCL [Metformin HCl] 500 mg PO BID 03/06/17 Review of Systems - Review of Systems Constitutional: denies: Chills, Fever Eyes: denies: Blurred Vision, Recent Change in Vision HENT: denies: Difficult Swallowing, Throat Pain Neck: denies: Stiffness, Tenderness Cardiovascular: denies: Chest Pain, Palpitations Respiratory: denies: Cough, SOB Gastrointestinal: denies: Constipation, Diarrhea, Vomiting Genitourinary: denies: Discharge, Dysuria Musculoskeletal: denies: Joint Swelling, Muscle Pain Integumentary: denies: Lesions, Lump Neurological: denies: Seizure, Syncope Endocrine: denies: Unexplained Weight Gain, Unexplained Weight Loss Hematology/Lymphatic: denies: Easily Bruised, Excessive Bleeding Psychiatric: denies: Anxiety, Depression Physical Exam Vital Signs: Vital Signs Temperature 99.2 F 02/02/18 11:32 Pulse Rate 91 H 02/02/18 11:32 Respiratory Rate 18 02/02/18 11:32 Blood Pressure 147/84 02/02/18 11:32 O2 Sat by Pulse Oximetry (%) 97 02/02/18 11:32 Constitutional: Yes: No Distress, Calm, Obese Eyes: Yes: Conjunctiva Clear, EOM Intact HENT: Yes: Atraumatic, Normocephalic Neck: Yes: Supple, Trachea Midline Cardiovascular: Yes: Regular Rate and Rhythm, S1, S2 Respiratory: Yes: Regular, CTA Bilaterally Gastrointestinal: Yes: Normal Bowel Sounds, Soft. No: Tenderness ...Rectal Exam: Yes: Deferred Renal/: No: CVA Tenderness - Left, CVA Tenderness - Right Musculoskeletal: No: Muscle Pain, Muscle Weakness Extremities: No: Cool, Cyanosis Edema: Yes Edema: RUE: 1+ Peripheral Pulses WNL: Yes Integumentary: Yes: Erythema (right thumb tracking proximal to foraream). 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 Patient desires to proceed with operation - will take to OR for above. Informed consent signed for same. Thank you for the opportunity to participate in the care of this patient. Code(s): L02.511 - CUTANEOUS ABSCESS OF RIGHT HAND (2) Cellulitis Code(s): L03.90 - CELLULITIS, UNSPECIFIED Qualifiers: Site of cellulitis: extremity Site of cellulitis of extremity: upper extremity Laterality: left Qualified Code(s): L03.114 - Cellulitis of left upper limb (3) HTN (hypertension) Code(s): I10 - ESSENTIAL (PRIMARY) HYPERTENSION Qualifiers: Hypertension type: essential hypertension Qualified Code(s): I10 - Essential (primary) hypertension (4) Obesity Code(s): E66.9 - OBESITY, UNSPECIFIED Qualifiers: Obesity type: due to excess calories Serious obesity comorbidity presence: with serious comorbidity Body mass index: BMI 40.0-44.9 (5) Diabetes 1.5, managed as type 2 Code(s): E10.9 - TYPE 1 DIABETES MELLITUS WITHOUT COMPLICATIONS
--- NOTE | 2018-02-02 18:56 | PN ---
Progress Note, Physician - Current Medication List Current Medications: Active Medications Acetaminophen (Tylenol -) 650 mg PO Q6H PRN PRN Reason: FEVER Glipizide (Glucotrol Xl -) 10 mg PO AM [facility] Last Admin: 02/02/18 08:25 Dose: 10 mg Vancomycin HCl 1,000 mg/ (Dextrose) 250 mls @ 166.667 mls/hr IVPB Q12H [facility]; Protocol Last Admin: 02/02/18 13:46 Dose: 166.667 mls/hr Metformin HCl (Glucophage -) 500 mg PO BIDAC [facility] Last Admin: 02/02/18 16:43 Dose: Not Given - Objective Vital Signs: Vital Signs Temperature 99.2 F 02/02/18 11:32 Pulse Rate 91 H 02/02/18 11:32 Respiratory Rate 18 02/02/18 11:32 Blood Pressure 147/84 02/02/18 11:32 O2 Sat by Pulse Oximetry (%) 97 02/02/18 11:32 Constitutional: Yes: No Distress HENT: Yes: Atraumatic Neck: Yes: Supple Cardiovascular: Yes: Regular Rate and Rhythm Respiratory: Yes: CTA Bilaterally Gastrointestinal: Yes: Normal Bowel Sounds Extremities: Yes: WNL Neurological: Yes: Alert, Oriented Labs: CBC, BMP 02/02/18 06:50 02/02/18 06:50 Problem List - Problems (1) Abscess Assessment/Plan: for I and D today..R thumb iv abx Code(s): L02.91 - CUTANEOUS ABSCESS, UNSPECIFIED (2) Diabetes 1.5, managed as type 2 Assessment/Plan: on po meds bgms Code(s): E10.9 - TYPE 1 DIABETES MELLITUS WITHOUT COMPLICATIONS
[2018-02-02] MEDS ORDERED: ONDANSETRON 4 MG/2 ML VIAL IVPUSH PRN (20:31)
[2018-02-02] MEDS ORDERED: PROPOFOL 20 ML ONE ×3 (20:41)
[2018-02-02] MEDS ORDERED: MIDAZOLAM HCL 2 MG/2 ML SINGLE DOSE VIAL ONE (20:41)
[2018-02-02] MEDS ORDERED: LIDOCAINE HCL/PF 2% SDV 5ML VIAL ONE (20:42)
[2018-02-02] MEDS ORDERED: KETAMINE HCL 200 MG/20 ML VIAL ONE (20:42)
[2018-02-02] MEDS ORDERED: SODIUM CHLORIDE 1,000 ML IV SCH (20:45)
[2018-02-02] MEDS ORDERED: GLYCOPYRROLATE 0.2 MG/1 ML VIAL ONE (21:01)
[2018-02-02] MEDS ORDERED: LIDOCAINE HCL 2% (50ML VIAL) INF ONE (21:04)
[2018-02-02] MEDS ORDERED: BUPIVACAINE HCL/PF 0.25% (2.5MG/ML) 10 ML VIAL IJ ONE (21:04)
--- NOTE | 2018-02-02 21:28 | OP ---
Operative Note - Note: Operative Date: 02/02/18 Pre-Operative Diagnosis: right thumb carbuncle/ abscess over first metacarpal phalangeal joint Operation: incison, drainge and debridment of right thumb abscess Findings: Abscess over first MCP joint, 2-3ml non-foul smelling pus dorsally, culture sent TT 10mins TP 250mmHg Post-Operative Diagnosis: Same as Pre-op Surgeon: Bryan Varela Anesthesiologist/RN CLINICAL RESEARCH: Meggan Eagle Anesthesia: General, Local Specimens Removed: culture Estimated Blood Loss (mls): 2 Instrument used (Debridements only): scalpel, rongeur, scissors Fluid Volume Replaced (mls): 300 (crystalloid) Operative Report Dictated: Yes
[2018-02-02] MEDS ORDERED: ACETAMINOPHEN 325 MG TABLET (FP) PO PRN (21:41)
[2018-02-03] MEDS: VANCOMYCIN 1,000 MG in DEXTROSE 5%-WATER - 250 ML IVPB SCH ×2 (00:16→12:30)
[2018-02-03] MEDS: glipiZIDE-XL 10 MG TAB.ER.24 (FP) PO SCH (06:18)
[2018-02-03] MEDS: metFORMIN HCL 500 MG TABLET (FP) PO SCH ×2 (06:18→17:30)
[2018-02-03] MEDS ORDERED: PT OWN MED DRAWER 7, Y5N ONE (06:55)
--- NOTE | 2018-02-03 08:22 | PN ---
Progress Note (short form) - Note Progress Note: Anesthesia Post op Pt seen and examined S;Alert and awake comfortable O: Vital Signs Temperature 98.8 F 02/03/18 05:59 Pulse Rate 86 02/03/18 05:59 Respiratory Rate 18 02/03/18 05:59 Blood Pressure 143/80 02/03/18 05:59 O2 Sat by Pulse Oximetry (%) 98 02/02/18 21:50 CBC, BMP 02/02/18 06:50 02/02/18 06:50 A/P Current Active Problems Abscess (Acute) Abscess of right thumb (Acute) HTN (hypertension) (Acute) Obesity (Acute) s/p I and D of right hand Doing well post op Continue current care Brendon Galindo MD
--- NOTE | 2018-02-03 10:28 | PN ---
Progress Note, Physician Chief Complaint: right thumb abscess History of Present Illness: 57 yo RHD male PMH hypertension, Diabetes Type II, obeisty multiple abscesses presents to the emergency department with increased right hand swelling and onset of purulent drainage yesterday. stable post op overnight. no complaints, pain is well controlled. - Current Medication List Current Medications: Active Medications Acetaminophen (Tylenol -) 650 mg PO Q6H PRN PRN Reason: FEVER Glipizide (Glucotrol Xl -) 10 mg PO DAILY@0700 [facility] Last Admin: 02/03/18 06:18 Dose: 10 mg Vancomycin HCl 1,000 mg/ (Dextrose) 250 mls @ 166.667 mls/hr IVPB Q12H [facility]; Protocol Last Admin: 02/03/18 00:16 Dose: 166.667 mls/hr Metformin HCl (Glucophage -) 500 mg PO BIDAC [facility] Last Admin: 02/03/18 06:18 Dose: 500 mg - Objective Vital Signs: Vital Signs Temperature 98.8 F 02/03/18 08:49 Pulse Rate 87 02/03/18 08:49 Respiratory Rate 20 02/03/18 08:49 Blood Pressure 136/82 02/03/18 08:49 O2 Sat by Pulse Oximetry (%) 95 02/03/18 09:00 Constitutional: Yes: Well Nourished, No Distress, Calm, Obese Eyes: Yes: Conjunctiva Clear, EOM Intact HENT: Yes: Atraumatic, Normocephalic Neck: Yes: Supple, Trachea Midline Cardiovascular: Yes: Regular Rate and Rhythm, S1, S2 Respiratory: Yes: Regular, CTA Bilaterally Gastrointestinal: Yes: Normal Bowel Sounds, Soft. No: Tenderness ...Rectal Exam: Yes: Deferred Genitourinary: No: CVA Tenderness - Left, CVA Tenderness - Right Musculoskeletal: No: Muscle Pain, Muscle Weakness Extremities: Yes: Erythema (resolving from forearm). No: Cool, Cyanosis Edema: Yes Edema: RUE: Trace Peripheral Pulses WNL: Yes Peripheral Pulses: Left Radial: 2+, Right Radial: 2+, Left Doralis Pedis: 2+, Right Dorsalis Pedis: 2+ Integumentary: Yes: Erythema, Incision. No: Jaundice Wound/Incision: Yes: Clean/Dry, Reddened, Excoriated, Unapproximated (Dorsum of right theumb over the MCP joint Measurement - 4cm X 2.5cm) Neurological: Yes: Alert, Oriented Psychiatric: Yes: Alert, Oriented Labs: CBC, BMP 02/02/18 06:50 02/02/18 06:50 Problem List - Problems (1) Abscess of right thumb Assessment/Plan: 57yo male RHD with MMP including DM and previous abscesses presents with right hand abscess of the thumb and aggressive cellulitis POD#1 s/p incision, drainage and debridement of right thumb abscess. IV antibiotics per ID glycemic control Dressing changes Frequency - daily Measurement - 4cm X 2.5cm Instuctsions - xeroform gauzes, 2X2 gauze sponges and cling wrap with tape PT evaluation Discharge at the discretion of the primary team Code(s): L02.511 - CUTANEOUS ABSCESS OF RIGHT HAND (2) Cellulitis Code(s): L03.90 - CELLULITIS, UNSPECIFIED Qualifiers: Site of cellulitis: extremity Site of cellulitis of extremity: upper extremity Laterality: left Qualified Code(s): L03.114 - Cellulitis of left upper limb (3) HTN (hypertension) Code(s): I10 - ESSENTIAL (PRIMARY) HYPERTENSION Qualifiers: Hypertension type: essential hypertension Qualified Code(s): I10 - Essential (primary) hypertension (4) Obesity Code(s): E66.9 - OBESITY, UNSPECIFIED Qualifiers: Obesity type: due to excess calories Serious obesity comorbidity presence: with serious comorbidity Body mass index: BMI 40.0-44.9 (5) Diabetes 1.5, managed as type 2 Code(s): E10.9 - TYPE 1 DIABETES MELLITUS WITHOUT COMPLICATIONS
--- NOTE | 2018-02-03 11:23 | OP ---
DATE OF OPERATION: 02/02/2018 PREOPERATIVE DIAGNOSIS: Right thumb carbuncle/abscess over the 1st metacarpophalangeal joint. POSTOPERATIVE DIAGNOSIS: Right thumb carbuncle/abscess over the 1st metacarpophalangeal joint. PROCEDURE: Incision, drainage, debridement, right thumb abscess. ATTENDING SURGEON: Bryan Varela MD EYELETTER: No one. ANESTHESIOLOGIST: Meggan Eagle MD ANESTHESIA TYPE: General with local. Local consists of 0.25% Marcaine and 1% lidocaine, a total of 20 mL given in an area block fashion. ESTIMATED BLOOD LOSS: 2 mL. TOURNIQUET PRESSURE: 250 mmHg. TOURNIQUET TIME: 10 minutes. INTRAVENOUS FLUID REPLACED: Crystalloid, 300 mL. INSTRUMENTS INVOLVED IN DEBRIDEMENT: Scalpel, rongeur and scissors. BRIEF FINDINGS: Patient had an abscess over the 1st metacarpophalangeal joint. Approximately 2 to 3 mL of [id number] pus was evacuated. A culture was sent and a delayed primary closure was laid in with a 2-0 nylon. INDICATION: Patient is a 57-year-old man presenting with a right thumb abscess. Was noted to have history of previous abscesses that were drained and a history of MRSA. He was counseled regarding risks, benefits and alternatives of surgical incision and drainage. Signed informed consent. Was taken for the procedure. PROCEDURE: Patient was brought to the operating room and placed in the supine position on the operating table with the right arm extended at 90 degrees perpendicular to body's midline axis. Lower extremities had SCDs placed. He received intravenous antibiotics prior to the start of surgery. He was induced with sedation, provided with supplemental oxygen by mask and we began first with sterile prep and drape of the right arm into a surgical field. Formal timeout was then done to identify the operative site and the procedure. With all parties in agreement we began first with unroofing of superficial subcuticular abscess which appeared to be overlying the metacarpophalangeal joint and measured approximately 2.5 x 4 cm. With this unroofed culture was sent from what appeared to be a thick purulent discharge. At the center of the excoriated skin there appeared to be a tract draining, a sinus from deep subdermal. This tract was then incised with a 15-blade scalpel, deepened and widened through the subcutaneous tissue in which a 2nd pocket of pus and purulent exudate was debrided then with a rongeur and scissor. The scalpel was used to scrape the outside surface of the tendon which appeared intact and the peritendon layer remained in place for the extensors of the thumb. We then irrigated the site copiously with approximately 1/2 L of sterile saline irrigation. In order to provide for delayed closure 2-0 nylon was laid across the wound to allow for this closure. It was then steri-stripped to the skin and 1/4 -inch packing, Iodoform, was installed into the wound cavity to keep it open and allow it to drain for overnight. The skin was cleaned. Sterile dressings were placed including Xeroform, 4 x 4's, Kerlix and Coban. The patient was awoken from the procedure having tolerated the procedure well. Counts were correct at the end of surgery. A culture was sent from the initial aspiration. MD DEBBI Beckett/[id number] MTDD
--- NOTE | 2018-02-03 14:26 | PN ---
Progress Note, Physician History of Present Illness: Pt is s/p Rt hand I+D. Has been afebrile, pain is controlled. Has no specific complaints. - Current Medication List Current Medications: Active Medications Acetaminophen (Tylenol -) 650 mg PO Q6H PRN PRN Reason: FEVER Glipizide (Glucotrol Xl -) 10 mg PO DAILY@0700 [facility] Last Admin: 02/03/18 06:18 Dose: 10 mg Vancomycin HCl 1,000 mg/ (Dextrose) 250 mls @ 166.667 mls/hr IVPB Q12H [facility]; Protocol Last Admin: 02/03/18 12:30 Dose: 166.667 mls/hr Metformin HCl (Glucophage -) 500 mg PO BIDAC [facility] Last Admin: 02/03/18 06:18 Dose: 500 mg - Objective Vital Signs: Vital Signs Temperature 98.8 F 02/03/18 08:49 Pulse Rate 87 02/03/18 08:49 Respiratory Rate 20 02/03/18 08:49 Blood Pressure 136/82 02/03/18 08:49 O2 Sat by Pulse Oximetry (%) 95 02/03/18 09:00 Constitutional: Yes: No Distress Cardiovascular: Yes: Regular Rate and Rhythm Respiratory: Yes: Regular Gastrointestinal: Yes: Normal Bowel Sounds, Soft Edema: Yes Edema: RUE: 1+ Wound/Incision: Yes: Dressing Dry and Intact (Rt hand with edema, less erythema , resolving forearm edema) Neurological: Yes: Alert, Oriented Labs: CBC, BMP 02/02/18 06:50 02/02/18 06:50 Assessment/Plan 57 y.o. male with DM, HTN, previous skin abscesses presents with Rt hand erythema/warmth/swelling extending from Rt thumb and tracking to upper Rt forearm Hand cellulitis / abscess s/p I+D POD#1 DM -- continue IV antibiotics -- trend esr, crp f/u wound culture isolate -- monitor renal function -- needs glycemic control -- surgical f/u, wound care
--- NOTE | 2018-02-03 17:43 | PN ---
Progress Note, Physician - Current Medication List Current Medications: Active Medications Acetaminophen (Tylenol -) 650 mg PO Q6H PRN PRN Reason: FEVER Glipizide (Glucotrol Xl -) 10 mg PO DAILY@0700 [facility] Last Admin: 02/03/18 06:18 Dose: 10 mg Vancomycin HCl 1,000 mg/ (Dextrose) 250 mls @ 166.667 mls/hr IVPB Q12H [facility]; Protocol Last Admin: 02/03/18 12:30 Dose: 166.667 mls/hr Metformin HCl (Glucophage -) 500 mg PO BIDAC [facility] Last Admin: 02/03/18 17:30 Dose: 500 mg - Objective Vital Signs: Vital Signs Temperature 97.9 F 02/03/18 14:40 Pulse Rate 78 02/03/18 14:40 Respiratory Rate 20 02/03/18 14:40 Blood Pressure 126/76 02/03/18 14:40 O2 Sat by Pulse Oximetry (%) 95 02/03/18 09:00 Constitutional: Yes: No Distress HENT: Yes: Atraumatic Neck: Yes: Supple Cardiovascular: Yes: Regular Rate and Rhythm Respiratory: Yes: CTA Bilaterally Gastrointestinal: Yes: Normal Bowel Sounds Extremities: Yes: Other (R hand in dressing) Neurological: Yes: Alert, Oriented Labs: CBC, BMP 02/02/18 06:50 02/02/18 06:50 Problem List - Problems (1) Abscess Assessment/Plan: s/p I and d on abx wound care dressing change Code(s): L02.91 - CUTANEOUS ABSCESS, UNSPECIFIED (2) Diabetes 1.5, managed as type 2 Assessment/Plan: on po meds bgms Code(s): E10.9 - TYPE 1 DIABETES MELLITUS WITHOUT COMPLICATIONS
[2018-02-04] MEDS ORDERED: PT OWN MED DRAWER 7, Y5N ONE ×2 (01:11→05:59)
[2018-02-04] MEDS: VANCOMYCIN 1,000 MG in DEXTROSE 5%-WATER - 250 ML IVPB SCH ×2 (01:12→15:00)
[2018-02-04] MEDS: glipiZIDE-XL 10 MG TAB.ER.24 (FP) PO SCH (06:10)
[2018-02-04] MEDS: metFORMIN HCL 500 MG TABLET (FP) PO SCH ×3 (06:10→17:24)
--- NOTE | 2018-02-04 12:57 | PN ---
Progress Note, Physician History of Present Illness: Pt is doing well. C/O less pain in right hand. Able to clench fist. Remains afebrile. No new complaints. - Current Medication List Current Medications: Active Medications Acetaminophen (Tylenol -) 650 mg PO Q6H PRN PRN Reason: FEVER Glipizide (Glucotrol Xl -) 10 mg PO DAILY@0700 [facility] Last Admin: 02/04/18 06:10 Dose: 10 mg Vancomycin HCl 1,000 mg/ (Dextrose) 250 mls @ 166.667 mls/hr IVPB Q12H [facility]; Protocol Last Admin: 02/04/18 01:12 Dose: 166.667 mls/hr Metformin HCl (Glucophage -) 500 mg PO BIDAC [facility] Last Admin: 02/04/18 06:10 Dose: 500 mg - Objective Vital Signs: Vital Signs Temperature 98.4 F 02/04/18 07:24 Pulse Rate 72 02/04/18 07:24 Respiratory Rate 19 02/03/18 21:00 Blood Pressure 137/81 02/04/18 07:24 O2 Sat by Pulse Oximetry (%) 99 02/04/18 09:00 Constitutional: Yes: No Distress, Calm Cardiovascular: Yes: Regular Rate and Rhythm Respiratory: Yes: Regular Gastrointestinal: Yes: Normal Bowel Sounds, Soft Genitourinary: Yes: WNL Extremities: Yes: Other (Rt hand swelling decreased) Integumentary: Yes: Erythema (Rt hand erythema/edema decreasing) Wound/Incision: Yes: Dressing Dry and Intact Neurological: Yes: Alert, Oriented Labs: CBC, BMP 02/02/18 06:50 02/02/18 06:50 Microbiology 02/02/18 21:00 Hand - Right Gram Stain - Final 02/02/18 21:00 Hand - Right Wound Culture - Preliminary Staphylococcus Latex Coag Pos 02/01/18 14:52 Blood - Peripheral Venous Blood Culture - Preliminary NO GROWTH OBTAINED AFTER 48 HOURS, INCUBATION TO CONTINUE FOR 3 DAYS. 02/01/18 14:52 Blood - Peripheral Venous Blood Culture - Preliminary NO GROWTH OBTAINED AFTER 48 HOURS, INCUBATION TO CONTINUE FOR 3 DAYS. Assessment/Plan 57 y.o. male with DM, HTN, previous skin abscesses presents with Rt hand erythema/warmth/swelling extending from Rt thumb and tracking to upper Rt forearm Hand cellulitis / abscess s/p I+D POD#2 DM -- continue IV antibiotics -- esr/crp trending down -- f/u wound culture -- staph aureus isolated, f/u susceptibilities -- monitor renal function, vancomycin trough prior to next dose -- needs glycemic control -- surgical f/u, wound care
--- NOTE | 2018-02-04 14:11 | PN ---
Progress Note, Physician History of Present Illness: Covering for Dr. Varela: POD2 s/p I&D with debridement right thumb abscess over MCP joint Pt seen and examined sitting in chair in room Minimal to no pain complaints Dressing intact No fevers On Vancomycin per ID culture growing presumed S. aureus, awaiting sensitivities - Current Medication List Current Medications: Active Medications Acetaminophen (Tylenol -) 650 mg PO Q6H PRN PRN Reason: FEVER Glipizide (Glucotrol Xl -) 10 mg PO DAILY@0700 [facility] Last Admin: 02/04/18 06:10 Dose: 10 mg Vancomycin HCl 1,000 mg/ (Dextrose) 250 mls @ 166.667 mls/hr IVPB Q12H [facility]; Protocol Last Admin: 02/04/18 01:12 Dose: 166.667 mls/hr Metformin HCl (Glucophage -) 500 mg PO BIDAC [facility] Last Admin: 02/04/18 06:10 Dose: 500 mg - Objective Vital Signs: Vital Signs Temperature 98.4 F 02/04/18 13:40 Pulse Rate 100 H 02/04/18 13:40 Respiratory Rate 19 02/03/18 21:00 Blood Pressure 136/84 02/04/18 13:40 O2 Sat by Pulse Oximetry (%) 99 02/04/18 09:00 Constitutional: Yes: No Distress, Calm, Obese Eyes: Yes: Conjunctiva Clear, EOM Intact HENT: Yes: Atraumatic, Normocephalic Musculoskeletal: Yes: Joint Stiffness (right thumb), Joint Swelling (right thumb ), Other (can wiggle right thumb, but no flexion yet) Extremities: Yes: Erythema (minimal/local to R thumb wound). No: Cool, Cyanosis Edema: Yes (R thumb & thenar hand) Integumentary: Yes: Erythema (local to R hand wound), Incision (R thumb over MCP joint). No: Rash Wound/Incision: Yes: Sutures Intact (delayed primary closure - sutures appear approximated?), Dressing Dry and Intact, Dressing Removed (and changed for new xeroform, 2x2 gauze, Kerlix and coban), Draining (some serosang drainage on dressing, no overt purulence from wound), Reddened (locally), Other (edges of wound pale/macerated/moist) Neurological: Yes: Alert, Oriented Labs: no new labs Microbiology 02/02/18 21:00 Gram Stain - Final Hand - Right Wound Culture - Preliminary Staphylococcus Latex Coag Pos 02/01/18 14:52 Blood Culture - Preliminary Blood - Peripheral Venous NO GROWTH OBTAINED AFTER 48 HOURS, INCUBATION TO CONTINUE FOR 3 DAYS. 02/01/18 14:52 Blood Culture - Preliminary Blood - Peripheral Venous NO GROWTH OBTAINED AFTER 48 HOURS, INCUBATION TO CONTINUE FOR 3 DAYS. Problem List - Problems (1) Abscess of right thumb Assessment/Plan: POD2 s/p I&D with debridement of right thumb abscess over MCP joint presumed S. aureus, awaiting sensitivities on Vanco per ID cellulitis improving area still swollen and stiff pain minimal dressing changed: xeroform, 2x2 gauze, gauze wrap, coban encouraged to keep hand elevated above heart level as much as possible daily dressing changes - will likely need VNS on discharge to continue PT/OT evaluation Code(s): L02.511 - CUTANEOUS ABSCESS OF RIGHT HAND (2) Cellulitis of right thumb Assessment/Plan: improving Code(s): L03.011 - CELLULITIS OF RIGHT FINGER (3) Diabetes mellitus with skin complication Assessment/Plan: poor glycemic control A1C 7.28 Feb 2017 consider rechecking Code(s): E11.628 - TYPE 2 DIABETES MELLITUS WITH OTHER SKIN COMPLICATIONS Qualifiers: Diabetes mellitus type: type 2 Diabetes mellitus [facility] insulin use: without tank terminal gauger use Diabetes mellitus complication detail: with other skin complication Qualified Code(s): E11.628 - Type 2 diabetes mellitus with other skin complications (4) Obesity Code(s): E66.9 - OBESITY, UNSPECIFIED Qualifiers: Obesity type: due to excess calories Obesity classification: adult class 3 (BMI >= 40) Serious obesity comorbidity presence: with serious comorbidity Body mass index: BMI 40.0-44.9 Qualified Code(s): E66.01 - Morbid (severe) obesity due to excess calories; Z68.41 - Body mass index (BMI) 40.0-44.9, adult (5) HTN (hypertension) Code(s): I10 - ESSENTIAL (PRIMARY) HYPERTENSION Qualifiers: Hypertension type: essential hypertension Qualified Code(s): I10 - Essential (primary) hypertension
[2018-02-04] MEDS: VANCOMYCIN 1,250 MG in DEXTROSE 5%-WATER - 250 ML IVPB SCH (15:29)
--- NOTE | 2018-02-04 18:31 | PN ---
Progress Note, Physician - Current Medication List Current Medications: Active Medications Acetaminophen (Tylenol -) 650 mg PO Q6H PRN PRN Reason: FEVER Glipizide (Glucotrol Xl -) 10 mg PO DAILY@0700 [facility] Last Admin: 02/04/18 06:10 Dose: 10 mg Vancomycin HCl 1,250 mg/ (Dextrose) 250 mls @ 166.667 mls/hr IVPB Q12H [facility]; Protocol Last Admin: 02/04/18 15:29 Dose: 166.667 mls/hr Metformin HCl (Glucophage -) 1,000 mg PO BIDAC [facility] Last Admin: 02/04/18 17:24 Dose: 1,000 mg - Objective Vital Signs: Vital Signs Temperature 98.4 F 02/04/18 13:40 Pulse Rate 100 H 02/04/18 13:40 Respiratory Rate 18 02/04/18 10:28 Blood Pressure 136/84 02/04/18 13:40 O2 Sat by Pulse Oximetry (%) 99 02/04/18 09:00 Constitutional: Yes: No Distress HENT: Yes: Atraumatic Neck: Yes: Supple Cardiovascular: Yes: Regular Rate and Rhythm Respiratory: Yes: CTA Bilaterally Gastrointestinal: Yes: Normal Bowel Sounds Extremities: Yes: Other (R hand in dressing) Neurological: Yes: Alert, Oriented Labs: CBC, BMP 02/02/18 06:50 02/02/18 06:50 Problem List - Problems (1) Abscess Assessment/Plan: s/p I and d on abx wound care dressing change NEED TO KNOW FROM ID IF WE CAN SWITCH TO ORAL AND DC PATIENT Code(s): L02.91 - CUTANEOUS ABSCESS, UNSPECIFIED (2) Diabetes 1.5, managed as type 2 Code(s): E10.9 - TYPE 1 DIABETES MELLITUS WITHOUT COMPLICATIONS
[2018-02-04 22:45] VITALS: BMI 18.3
[2018-02-05] MEDS: VANCOMYCIN 1,250 MG in DEXTROSE 5%-WATER - 250 ML IVPB SCH ×3 (01:29→13:29)
[2018-02-05] MEDS ORDERED: PT OWN MED DRAWER 7, Y5N ONE (01:37)
[2018-02-05] MEDS: metFORMIN HCL 500 MG TABLET (FP) PO SCH (06:05)
[2018-02-05] MEDS: glipiZIDE-XL 10 MG TAB.ER.24 (FP) PO SCH (06:06)
--- NOTE | 2018-02-05 11:37 | PN ---
Progress Note, Physician History of Present Illness: Pt states he feels fine. Wants to go home. Less edema/erythema/ good range of motion in Rt hand. Has no specific complaints. - Current Medication List Current Medications: Active Medications Acetaminophen (Tylenol -) 650 mg PO Q6H PRN PRN Reason: FEVER Glipizide (Glucotrol Xl -) 10 mg PO DAILY@0700 [facility] Last Admin: 02/05/18 06:06 Dose: 10 mg Vancomycin HCl 1,250 mg/ (Dextrose) 250 mls @ 166.667 mls/hr IVPB Q12H [facility]; Protocol Last Admin: 02/05/18 01:33 Dose: 166.667 mls/hr Metformin HCl (Glucophage -) 1,000 mg PO BIDAC [facility] Last Admin: 02/05/18 06:05 Dose: 1,000 mg - Objective Vital Signs: Vital Signs Temperature 98 F 02/05/18 05:17 Pulse Rate 80 02/05/18 05:17 Respiratory Rate 20 02/05/18 05:17 Blood Pressure 118/82 02/05/18 05:17 O2 Sat by Pulse Oximetry (%) 98 02/05/18 08:48 Constitutional: Yes: No Distress, Calm Cardiovascular: Yes: Regular Rate and Rhythm Respiratory: Yes: CTA Bilaterally Gastrointestinal: Yes: Normal Bowel Sounds, Soft Genitourinary: Yes: WNL Musculoskeletal: Yes: WNL Extremities: Yes: WNL Wound/Incision: Yes: Dressing Dry and Intact (Rt hand no erythema/less edema/no warmth, able to clench fist, dressing intact) Neurological: Yes: Alert, Oriented Labs: CBC, BMP 02/02/18 06:50 02/02/18 06:50 Verbal results from microbiology lab: Rt hand wound culture: +MRSA susc. to Bactrim/clinda/vancomycin/tetracycline/ linezolid Assessment/Plan 57 y.o. male with DM, HTN, previous skin abscesses presents with Rt hand erythema/warmth/swelling extending from Rt thumb and tracking to upper Rt forearm Hand cellulitis / abscess s/p I+D POD#3 +MRSA (verbal results from microbiology lab) DM -- esr/crp trending down, wbc normal, afebrile, clinically improving -- switch to Bactrim DS 2 tabs daily x 10 days -- d/w pt importance of completing antibiotic course, to seek medical attention if develops abd pain/diarrhea/rash -- needs surgical f/u as outpt, monitor esr/crp
--- NOTE | 2018-02-05 12:31 | DS ---
Physical Examination Vital Signs: Vital Signs Temperature 98 F 02/05/18 05:17 Pulse Rate 80 02/05/18 05:17 Respiratory Rate 20 02/05/18 05:17 Blood Pressure 118/82 02/05/18 05:17 O2 Sat by Pulse Oximetry (%) 98 02/05/18 08:48 Constitutional: Yes: No Distress HENT: Yes: Atraumatic Neck: Yes: Supple Cardiovascular: Yes: Regular Rate and Rhythm Respiratory: Yes: CTA Bilaterally Gastrointestinal: Yes: Normal Bowel Sounds Extremities: Yes: Other (R hand in dressing) Neurological: Yes: Alert, Oriented Labs: CBC, BMP 02/02/18 06:50 02/02/18 06:50 Discharge Summary Reason For Visit: ABSCESS Current Active Problems Abscess (Acute) Abscess of right thumb (Acute) Cellulitis of right thumb (Acute) Diabetes mellitus with skin complication (Acute) HTN (hypertension) (Acute) Obesity (Acute) Condition: Improved - Instructions Diet, Activity, Other Instructions: Postoperative instructions: You had a incision, drainage and debridement for right thumb abscess on 02/03/[address] Bryan Varela of [facility]. Dressing: Frequency - daily Measurement - 4cm X 2.5cm Instuctsions - xeroform gauzes, 2X2 gauze sponges and cling wrap with tape Activity: Resume your usual activities gradually, but no heavy exertion or lifting more than 10-15 pounds for 4-6 weeks. Eat lightly at first, but advance to your usual diet as tolerated. Pain: For pain, you may use and alternate Tylenol (acetaminophen) 1-2 pills and/ or ibuprofen 200 mg (1-3 pills) every 6 hours each as needed; this means that you can take one OR the other at 3-hour intervals. If you are prescribed a Tylenol/narcotic combination for severe pain, use it instead of plain Tylenol as needed and switch back when your pain starts decreasing. Do not take more than 4000 mg of acetaminophen in a day. Take medications as prescribed or indicated on the labeling. Follow-up: Call Dr. Varela' office at [phone] to make your postop appointment (Tuesday in approximately 2 weeks after surgery as advised). Clinic is held in the [facility] on the first floor of [facility]. Call the office if you have: * increasing pain not responsive to pain medication * fever of 101F or higher * unusual or increasing bleeding or drainage from wounds * increasing redness or swelling at wound sites Also, see your primary medical doctor within 1-2 weeks. SEE YOUR PMD NXT WEEK...WEEK OF FEB 06 Referrals: Bryan Varela MD [Staff Physician] - Disposition: HOME - Home Medications Comprehensive Discharge Medication List: Ambulatory Orders Glipizide [Glipizide ER] 10 mg PO DAILY 03/06/17 metFORMIN HCL [Metformin HCl] 1,000 mg PO BID 03/06/17 Sulfamethoxazole/Trimethoprim [Bactrim Ds -] 1 tab PO BID 10 Days #20 tablet dc home antibiotic dose d/w id
[2018-02-05 13:26] VITALS: BP 139/50; PULSE 93; TEMP 98.2
== END 2018-02-05 16:47 | disposition home or self-care (01) | DRG 383 ==
LOC: JER 11:51 → JERBED 18:16 → J6S 02-02 11:20
PROVIDERS: ADMIT Internal Medicine; ATTEND Internal Medicine
PROC: 0XB Anatomical Regions, Upper Extremities, Excision (ICD-10-PCS; 2018-02-02)
PROC: 0X9J0ZX Drainage of Right Hand, Open Approach, Diagnostic (ICD-10-PCS; principal; 2018-02-02 20:20)
DX: L03.011 Cellulitis of right finger (principal); L02.511 Cutaneous abscess of right hand; I10 Essential (primary) hypertension; E11.9 Type 2 diabetes mellitus without complications; Z68.41 Body mass index [BMI] 40.0-44.9, adult; E11.628 Type 2 diabetes mellitus with other skin complications; E66.01 Morbid (severe) obesity due to excess calories; R00.0 Tachycardia, unspecified; A49.02 Methicillin resistant Staphylococcus aureus infection, unspecified site
CPT/HCPCS: 36415; 73110-TC-RT-FY; 73130-TC-RT-FY; 80053; 82962; 85025; 85651; 86140; 87040; 87070; 87186; 87205; 94010; 94760; 97116-GP; 97161-GP; 99285-25; G0480

== ENCOUNTER 2019-07-23 12:03 | Emergency (ER) | payer OTHER ==
[2019-07-23 12:10] VITALS: BP 167/77; PULSE 99; TEMP 98.2; BMI 39.9
--- NOTE | 2019-07-23 14:13 | PDOC ---
History of Present Illness - General Chief Complaint: Pain Stated Complaint: LFT HURT LEG Time Seen by Provider: 07/23/19 13:50 History Source: Patient Exam Limitations: No Limitations - History of Present Illness Initial Comments: 07/23/19 14:08 59-year-old male history of diabetes, hypertension presents complaining of pain behind his left thigh after stepping on a grape at work and falling with outstretched left leg onto the ground. This occurred yesterday at approximately 3 PM. Patient arrived in his home at approximately 4 PM, took ibuprofen 400 mg and applied ice to the area. Denies head strike, neck pain, LOC , chest pain, back pain, abdominal pain or any other injuries. Patient reports he was unable to sit due to pain yesterday however today he is able to sit. Took ibuprofen 400 mg 2 hours ago. ROS: as above PE: GENERAL: well-appearing, NAD, obese HEAD: NCAT EYES: Pupils equal, round and reactive to light, sclera anicteric, conjunctiva clear ENT: pharynx: no erythema, no exudate, uvula midline NECK: supple CHEST: nontender RESP: clear, no w/r/r CARDIO: rrr, no m/g/r ABD: +BS, soft, nontender, non distended BACK: no midline spinal ttp, no CVAT EXTREMITIES: Normal range of motion, no edema, no ecchymosis noted behind left eye, soft compartments, normal range of motion to left knee, no calf tenderness to palpation or swelling noted NEUROLOGICAL: Normal speech, walking slowly with slight limp SKIN: Warm, Dry 07/23/19 14:12 Is this a multiple visit Asthma Patient?: No Past History - Past Medical History Allergies/Adverse Reactions: Allergies Allergy/AdvReac Type Severity Reaction Status Date / Time No Known Allergies Allergy Verified 07/23/19 12:08 Home Medications: Ambulatory Orders Glipizide [Glipizide ER] 10 mg PO DAILY 03/06/17 metFORMIN HCL [Metformin HCl] 1,000 mg PO BID 03/06/17 Sulfamethoxazole/Trimethoprim [Bactrim Ds -] 2 tab PO BID 10 Days #40 tablet COPD: No DVT: No Diabetes: Yes Hypercholesterolemia: Yes - Psycho Social/Smoking Cessation Hx Smoking History: Never smoked Have you smoked in the past 12 months: No Information on smoking cessation initiated: No Hx Alcohol Use: No Drug/Substance Use Hx: No Substance Use Type: None *Physical Exam - Vital Signs Last Vital Signs Temp Pulse Resp BP Pulse Ox 98.2 F 99 H 17 167/77 98 07/23/19 12:08 07/23/19 12:08 07/23/19 12:08 07/23/19 12:08 07/23/19 12:08 Medical Decision Making - Medical Decision Making 07/23/19 14:12 59-year-old with history of diabetes and hypertension complaining of pain behind left thigh status post injury yesterday while at work. He stepped on a grape and fell onto the ground with an outstretched left leg. Ambulatory Note for work provided Advised patient to continue with ibuprofen 600 mg every 6 hours as needed for pain Apply ice to area as needed If symptoms worsen advised to follow-up with orthopedics Discharge - Discharge Information Problems reviewed: Yes Clinical Impression/Diagnosis: Muscle strain Condition: Stable Disposition: HOME - Admission No - Follow up/Referral Referrals: Stanton Álvarez MD [Staff Physician] - - Patient Discharge Instructions Additional Instructions: Take ibuprofen 600 mg every 6 hours as needed for pain If your symptoms worsen follow-up with Dr. Álvarez orthopedics Note for work provided - Post Discharge Activity Work/Back to School Note: Back to Work
== END 2019-07-23 14:16 | disposition home or self-care (01) ==
LOC: JERFT 12:03
DX: S76.812A Strain of other specified muscles, fascia and tendons at thigh level, left thigh, initial encounter (principal); W18.39XA Other fall on same level, initial encounter; Y93.89 Activity, other specified; Y92.512 Supermarket, store or market as the place of occurrence of the external cause; Y99.0 Civilian activity done for income or pay; E11.9 Type 2 diabetes mellitus without complications; Z79.84 Long term (current) use of oral hypoglycemic drugs; E78.00 Pure hypercholesterolemia, unspecified
CPT/HCPCS: 99281-25